=== PATIENT | female | born 1995 | race Caucasian/White ===

== ENCOUNTER 2018-03-03 10:28 | Day surgery (SDC) | payer OTHER ==
[2018-03-03] MEDS ORDERED: Ringers Lactate 1,000 ML IV ONE (10:58)
[2018-03-03 11:05] VITALS: TEMP 98; O2SAT 100
[2018-03-03] MEDS ORDERED: PROPOFOL 200 MG/20 ML VIAL IV ONE (13:00)
[2018-03-03] MEDS ORDERED: LIDOCAINE 1% MPF 5 ML VIAL ONE (13:00)
--- NOTE | 2018-03-03 13:28 | ENDO RPT ---
[address], [address] COLONOSCOPY PROCEDURE REPORT EXAM DATE: 03/03/2018 PATIENT NAME: Gini Santos MR #: [id number] BIRTHDATE: 1995 ATTENDING: Jerald Riggins Dr STATUS: outpatient STUDENT SPECIALIST: Nickie Yan RN, Anaid Birmingham RN, and Margot Arthur INDICATIONS: The patient is a 23 yr old Female here for a colonoscopy due to abdominal pain, hematochezia, and follow-up of Crohn's disease PROCEDURE PERFORMED: Colonoscopy with biopsy MEDICATIONS: Per Anesthesia. ESTIMATED BLOOD LOSS: None CONSENT: The patient understands the risks and benefits of the procedure and understands that these risks include, but are not limited to: sedation, allergic reaction, infection, perforation and/or bleeding. Alternative means of evaluation and treatment include, among others: physical exam, x-rays, and/or surgical intervention. The patient elects to proceed with this endoscopic procedure. DESCRIPTION OF PROCEDURE: During intra-op preparation period all mechanical medical equipment was checked for proper function. Hand hygiene and appropriate measures for infection prevention was taken. Procedure, possible complications, alternatives including, but not limited to possibility of bleeding, perforation, tear, infection, sepsis, need for surgery, need for blood transfusion, were explained to the patient. After the risks, benefits and alternatives of the procedure were thoroughly explained, Informed consent was verified, confirmed and timeout was successfully executed by the treatment team. The patient was placed in the left lateral position. A digital rectal exam was performed and revealed hemorrhoids. After appropriate level of anesthesia, the scope was passed. The EC-[id number] ([id number]) endoscope was introduced through the anus and advanced to the terminal ileum which was intubated for a short distance. The quality of the prep was good. The instrument was then slowly withdrawn as the colon was fully examined. Scope withdrawal time was 7 minutes. COLON FINDINGS: Random biopsies of the terminal ileum / right colon / left colon / rectum obtained. Small internal hemorrhoids were found. Retroflexed views revealed no abnormalities. The scope was then completely withdrawn from the patient and the procedure terminated. ADVERSE EVENTS: There were no complications. IMPRESSIONS: 1. Random biopsies of the terminal ileum / right colon / left colon / rectum obtained 2. Small internal hemorrhoids 2. Intubation to terminal ileum RECOMMENDATIONS: 1. await biopsy results 2. avoid NSAIDS 3. CT abdomen/pelvis 4. pillcam / capsule endoscopy RECALL: Return in 2 year(s) for Colonoscopy. Jerald Riggins Dr eSigned: Jerald Riggins Dr 03/03/2018 1:28 PM cc: CPT CODES: ICD9 CODES: PATIENT NAME: Gini Santos MR#: [id number]
[2018-03-03] MEDS ORDERED: HYDROCORTISONE ACETATE 25MG SUPP PR ONE (13:45)
[2018-03-03] MEDS ORDERED: PROMETHAZINE 25 MG/ML VIAL ONE (13:53)
[2018-03-03] MEDS ORDERED: MEPERIDINE HCL 25 MG/0.5 ML ONE (13:53)
[2018-03-03 14:45] VITALS: BP 102/64
== END 2018-03-03 14:45 | disposition home or self-care (01) ==
LOC: OR 10:28
PROVIDERS: ATTEND Internal Medicine Gastroenterology
PROC: 0DBP8ZX Excision of Rectum, Via Natural or Artificial Opening Endoscopic, Diagnostic (ICD-10-PCS; 2018-03-03)
PROC: 0DBF8ZX Excision of Right Large Intestine, Via Natural or Artificial Opening Endoscopic, Diagnostic (ICD-10-PCS; 2018-03-03)
PROC: 0DBG8ZX Excision of Left Large Intestine, Via Natural or Artificial Opening Endoscopic, Diagnostic (ICD-10-PCS; 2018-03-03)
PROC: 0DBB8ZX Excision of Ileum, Via Natural or Artificial Opening Endoscopic, Diagnostic (ICD-10-PCS; principal; 2018-03-03 10:30)
DX: K92.1 Melena (principal); K64.8 Other hemorrhoids; K50.90 Crohn's disease, unspecified, without complications
CPT/HCPCS: 81025; 88305; J2175; J2550

== ENCOUNTER 2018-08-28 23:22 | Emergency (ER) | payer OTHER ==
[2018-08-29 00:25] LABS: Urine Blood 1+ (NEG); Urine Glucose NEGATIVE (NEG); Urine Protein NEGATIVE (NEG)
[2018-08-29 00:29] LABS: Absolute Lymphocytes (CBC) 4.5 K/uL (0.7-4.9); Absolute Monocytes 0.8 K/uL (0.1-1.3); Absolute Neutrophil 6.5 K/uL (1.8-8.0); Basophils % 0.5 % (0-1.3); Eosinophils % 1.4 % (0-4.4); Hematocrit 39.7 % (36.0-45.0); Lymphocytes % 37.2 % (15.3-44.8); MCH 30.5 pg (27.0-35.0); MCV 89.2 fL (80-100); MPV 9.8 fL (7.6-11.3); Monocytes % 6.7 % (3.3-12.3); RBC Red Blood Cell Count 4.45 M/uL (3.86-4.86)
--- NOTE | 2018-08-29 03:11 | EDPHYS ---
Physician Documentation [facility] Name: Gini Santos Age: 23 yrs Sex: Female : 1995 Arrival Date: 08/28/2018 Time: 23:24 Bed 24 Private MD: ED Physician Yoseph Hirsch HPI: 08/29 00:36 This 23 yrs old Female presents to ER via Ambulatory with complaints of ANAL rn PAIN,CROHNS DISEASE. 00:36 The patient presents to the emergency department with pain in the rectal area. rn 00:36 Onset: The symptoms/episode began/occurred 2 day(s) ago. Modifying factors: The rn symptoms are alleviated by nothing, The symptoms are aggravated by bowel movement. Associate signs and symptoms: Pertinent negatives: abdominal pain, fever, lower GI bleeding. The patient has not experienced similar symptoms in the past. REports anal pain, began 2 days ago, reports pain near anus and hurts with bowel movement, no fever, has crohn's. NO bleeding. . 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 - Social history:: Smoking status: Patient/guardian denies using tobacco. - Ebola Screening: : No symptoms or risks identified at this time. - Family history:: not pertinent. - Hospitalizations: : No recent hospitalization is reported. ROS: 00:36 Constitutional: Negative for fever, chills, and weight loss, Eyes: Negative for injury, rn pain, redness, and discharge, Cardiovascular: Negative for chest pain, palpitations, and edema, Respiratory: Negative for shortness of breath, cough, wheezing, and pleuritic chest pain, Abdomen/GI: Negative for abdominal pain, nausea, vomiting, diarrhea, + perianal pain and tenderness. Back: Negative for injury and pain, MS/Extremity: Negative for injury and deformity, Neuro: Negative for headache, weakness, numbness, tingling, and seizure. Exam: 00:36 Constitutional: This is a well developed, well nourished patient who is awake, alert, rn and in no acute distress. Abdomen/GI: Soft, non-tender, with normal bowel sounds. No distension or tympany. No guarding or rebound. No evidence of tenderness throughout. + small anal swelling at 6 o'clock position, appears 1cm in diameter, no erythema, + tenderness, small microtears overlying swelling. No internal rectal tenderness or masses. Vital Signs: 00:09 BP 154 / 92; Pulse 106; Resp 20; Temp 98; Pulse Ox 100% ; Weight 74.84 kg; Height 5 ft. kr2 4 in. (162.56 cm); Pain 3/10; 00:58 BP 125 / 78; Pulse 91; Pulse Ox 100% on R/A; rv 02:17 BP 123 / 82; Pulse 87; Pulse Ox 100% ; rv 00:09 Body Mass Index 28.32 (74.84 kg, 162.56 cm) kr2 MDM: 08/28 23:43 Patient medically screened. rn 08/29 03:08 Differential diagnosis: hemorrhoids, fissure, abscess. Differential diagnosis: rn proctitis. Data reviewed: vital signs, nurses notes. Counseling: I had a detailed discussion with the patient and/or guardian regarding: the historical points, exam findings, and any diagnostic results supporting the discharge/admit diagnosis, lab results, radiology results, the need for outpatient follow up, to return to the emergency department if symptoms worsen or persist or if there are any questions or concerns that arise at home. Response to treatment: the patient's symptoms have mildly improved after treatment, and as a result, I will discharge patient. Special discussion: I discussed with the patient/guardian in detail that at this point there is no indication for admission to the hospital. It is understood, however, that if the symptoms persist or worsen the patient needs to return immediately for re-evaluation. Based on the history and exam findings, there is no indication for further emergent testing or inpatient evaluation. I discussed with the patient/guardian the need to see the cma for further evaluation of the symptoms. ED course: Pt with normal CT, no evidence of perirectal abscess, small area of swelling in perianal area with micro tears, possible just local inflammation vs phlegmon, vs early perirectal abscess, after discussion with patient, will dc home with steroid cream and abx and pt to make f/u appt with GI. . 08/28 23:59 Order name: CBC with Diff; Complete Time: 00:35 rn 08/29 00:19 Order name: Urine Dipstick--Ancillary (enter results); Complete Time: 00:35 mw2 08/29 00:19 Order name: Urine --Ancillary (enter results); Complete Time: 00:35 mw2 08/29 01:21 Order name: Abdomen EDMS 08/28 23:59 Order name: IV Start; Complete Time: 00:17 rn 08/28 23:59 Order name: Urine Test (obtain specimen); Complete Time: 00:13 rn 08/28 23:59 Order name: Urine Dipstick-Ancillary (obtain specimen); Complete Time: 00:13 rn Administered Medications: 03:15 Drug: Clindamycin 300 mg Route: PO; rv 03:15 Follow up: Response: Medication administered at discharge. rv Disposition: 08/29/18 03:11 Discharged to Home. Impression: Anal pain, Anal fissure, unspecified. - Condition is Stable. - Discharge Instructions: Anal Fissure, Adult, Perirectal Abscess. - Prescriptions for Anusol- HC 2.5 % Rectal Cream - Apply to affected area 1 application by TOPICAL route every 8 hours As needed; 30 gram. Clindamycin HCl 300 mg Oral Capsule - take 1 capsule by ORAL route every 6 hours for 10 days; 40 capsule. Diflucan 150 mg Oral Tablet - take 1 tablet by ORAL route one time for 1 day; 1 tablet. - Medication Reconciliation Form, Thank You Letter, Antibiotic Education, Prescription Opioid Use form. - Follow up: Jerald Riggins MD; When: 1 - 2 days; Reason: Recheck today's complaints, Re-evaluation by your physician. - Problem is new. - Symptoms have improved. Signatures: Dispatcher [employer] EDMS Yoseph Hirsch MD MD rn Reaves, Karey, RN RN kr2 Reese Mulligan RN RN rv Corrections: (The following items were deleted from the chart) 00:01 Pelvis W/Cont+CT.RAD.BRZ ordered. EDMS EDMS 03:19 03:11 08/29/2018 03:11 Discharged to Home. Impression: Anal pain; Anal fissure, rv unspecified. Condition is Stable. Forms are Medication Reconciliation Form, Thank You Letter, Antibiotic Education, Prescription Opioid Use. Follow up: Jerald Riggins; When: 1 - 2 days; Reason: Recheck today's complaints, Re-evaluation by your physician. Problem is new. Symptoms have improved. rn
--- NOTE | 2018-08-29 03:11 | ER ---
Nurse's Notes [facility] Name: Gini Santos Age: 23 yrs Sex: Female : 1995 Arrival Date: 08/28/2018 Time: 23:24 Bed 24 Private MD: Diagnosis: Anal pain;Anal fissure, unspecified Presentation: 08/29 00:00 Presenting complaint: Patient states: "I have Crohn's and on Wednesday I started having kr2 pain near my anus. It is about a 3/10 when I am just doing normal daily activities but gets worse with bowel movements". Transition of care: patient was not received from another setting of care. Onset of symptoms was August 26, 2018. Risk Assessment: Do you want to hurt yourself or someone else? Patient reports no desire to harm self or others. Initial Sepsis Screen: Does the patient meet any 2 criteria? No. Patient's initial sepsis screen is negative. Does the patient have a suspected source of infection? No. Patient's initial sepsis screen is negative. Care prior to arrival: None. 00:00 Method Of Arrival: Ambulatory kr2 00:00 Acuity: JARED 3 kr2 Triage Assessment: 00:06 General: Appears in no apparent distress. uncomfortable, well groomed, well developed, kr2 well nourished, Behavior is calm, cooperative, appropriate for age. Pain: Complains of pain in anus Pain currently is 3 out of 10 on a pain scale. Quality of pain is described as sharp, shooting, Pain began 2-3 days ago. Is continuous, Alleviated by rest, Aggravated by bowel movement. EENT: Oral mucosa is moist. Neuro: Level of Consciousness is awake, alert, obeys commands, Oriented to person, place, time, situation. Cardiovascular: Capillary refill < 3 seconds in bilateral fingers Patient's skin is warm and dry. Respiratory: Airway is patent Respiratory effort is even, unlabored, Respiratory pattern is regular, symmetrical. GI: Abdomen is flat, non-distended, Rectal exam: Deferred to physician Bowel sounds present X 4 quads. Abd is soft and non tender X 4 quads. : Urine is clear. Derm: Skin is intact, is healthy with good turgor, Skin is pink, warm \\T\\ dry. Musculoskeletal: Circulation, motion, and sensation intact. 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 - Social history:: Smoking status: Patient/guardian denies using tobacco. - Ebola Screening: : No symptoms or risks identified at this time. - Family history:: not pertinent. - Hospitalizations: : No recent hospitalization is reported. Screenin:10 Abuse screen: Denies threats or abuse. Denies injuries from another. Nutritional kr2 screening: No deficits noted. Tuberculosis screening: No symptoms or risk factors identified. Fall Risk None identified. Assessment: 00:18 Reassessment: See triage assessment. kr2 00:58 Reassessment: Patient appears in no apparent distress at this time. Patient and/or rv family updated on plan of care and expected duration. Pain level reassessed. Patient is alert, oriented x 3, equal unlabored respirations, skin warm/dry/pink. 02:17 Reassessment: Patient appears in no apparent distress at this time. Patient and/or rv family updated on plan of care and expected duration. Pain level reassessed. Patient is alert, oriented x 3, equal unlabored respirations, skin warm/dry/pink. awaiting CT scan result. Vital Signs: 00:09 BP 154 / 92; Pulse 106; Resp 20; Temp 98; Pulse Ox 100% ; Weight 74.84 kg; Height 5 ft. kr2 4 in. (162.56 cm); Pain 3/10; 00:58 BP 125 / 78; Pulse 91; Pulse Ox 100% on R/A; rv 02:17 BP 123 / 82; Pulse 87; Pulse Ox 100% ; rv 00:09 Body Mass Index 28.32 (74.84 kg, 162.56 cm) kr2 ED Course: 08/28 23:24 Patient arrived in ED. al2 23:43 Hirsch, Yoseph, MD is Attending Physician. rn 08/29 00:00 Heather Cano, HOMER is Primary Nurse. kr2 00:00 Arm band placed on. kr2 00:00 Served as a therapist rrt during rectal exam. kr2 00:02 Triage completed. kr2 00:10 Patient has correct armband on for positive identification. Bed in low position. Call kr2 light in reach. Side rails up X 1. Pulse ox on. NIBP on. Door closed. Warm blanket given. Head of bed elevated. 00:15 Inserted saline lock: 20 gauge in right antecubital area, using aseptic technique. rv Blood collected. 00:15 Initial lab(s) drawn, by me, sent to lab. rv 00:17 Urine collected: clean catch specimen, clear. kr2 01:[address] via wheelchair. kw1 01:45 Abdomen In Process Unspecified. EDMS 01:47 CT completed. Patient tolerated procedure well. Patient moved back from CT. kw1 03:10 Jerald Riggins MD is Referral Physician. rn 03:19 IV discontinued, bleeding controlled, No redness/swelling at site. Pressure dressing rv applied. Administered Medications: 03:15 Drug: Clindamycin 300 mg Route: PO; rv 03:15 Follow up: Response: Medication administered at discharge. rv Outcome: 03:11 Discharge ordered by . rn 03:19 Discharged to home ambulatory. rv 03:19 Condition: good 03:19 Discharge instructions given to patient, Instructed on discharge instructions, follow up and referral plans. medication usage, Demonstrated understanding of instructions, follow-up care, medications, Prescriptions given X 3. 03:19 Patient left the ED. rv Signatures: Dispatcher [employer] EDWY Yoseph Hirsch MD MD rn Reaves, Karey, RN RN kr2 Gina Salgado kw1 Madonna Frazier al2 Reese Mulligan RN RN rv Corrections: (The following items were deleted from the chart) 00:18 00:00 Served as a therapist rrt during rectal exam. kr2 kr2
[2018-08-29] MEDS ORDERED: CLINDAMYCIN HCL 150 MG CAP ONE (03:16)
[2018-08-29 03:32] VITALS: TEMP 98; O2SAT 100
[2018-08-29 03:34] VITALS: BP 123/82
--- NOTE | 2018-08-29 08:30 | RAD REPORT ---
EXAM DESCRIPTION: CT - Abdomen Pelvis W Contrast - 08/29/2018 7:20 am CLINICAL HISTORY: Abdominal pain, perianal pain, history of Crohn's disease A preliminary report was provided at the time of the study and reviewed prior to final report. COMPARISON: July 2017 TECHNIQUE: Biphasic, helical CT imaging of the abdomen and pelvis was performed following 100 ml non -ionic IV contrast. Oral contrast was given. All CT scans are performed using dose optimization technique as appropriate and may include automated exposure control or mA/KV adjustment according to patient size. FINDINGS: No suspicious findings in the lung bases. The liver, spleen, and pancreas show no suspicious findings. Gallbladder and biliary tree are also wi thout suspicious finding. Symmetric renal function is seen with no hydronephrosis or suspicious renal mass. No pyelonephritis o r acute renal parenchymal process. No urinary bladder abnormality. Uterus and ovaries show no suspici ous findings. IUD is properly positioned within a normal sized uterus. No dilated bowel loops or bowel wall thickening. Appendix is normal. No specific abnormality of the t erminal ileum or small bowel. No free air, free fluid or inflammatory stranding. No hernia, mass or bulky lymphadenopathy. No adrenal abnormality. No suspicious bony findings. IMPRESSION: Contrast enhanced CT abdomen and pelvis showing no significant or suspicious finding. No suspicious change from comparison.
== END 2018-08-29 03:19 | disposition home or self-care (01) ==
LOC: ER 23:22
DX: K60.2 Anal fissure, unspecified (principal); K50.90 Crohn's disease, unspecified, without complications; Z88.6 Allergy status to analgesic agent
CPT/HCPCS: 36415; 74177; 81003; 81025; 85025; 99285; Q9967

== ENCOUNTER 2019-02-08 16:22 | Emergency (ER) | payer OTHER ==
--- NOTE | 2019-02-08 18:11 | RAD REPORT ---
EXAM DESCRIPTION: Shaheen Moya (2 Views)02/08/2019 5:36 pm CLINICAL HISTORY: Cough COMPARISON: January 2018 FINDINGS: The lungs appear clear of acute infiltrate. The heart is normal size IMPRESSION: No acute abnormalities displayed
[2019-02-08 20:59] LABS: Urine Blood TRACE (NEG); Urine Glucose NEGATIVE (NEG); Urine Protein NEGATIVE (NEG)
[2019-02-08] MEDS ORDERED: LIDOCAINE 1% MPF 5 ML VIAL ONE (21:02)
[2019-02-08] MEDS ORDERED: ONDANSETRON 4 MG/2 ML VIAL ONE ×2 (21:03→22:11)
[2019-02-08] MEDS ORDERED: NA CHLORIDE 0.9% 1,000 ML ONE ×2 (21:03→22:15)
[2019-02-08] MEDS ORDERED: BENZONATATE 100 MG CAP PO ONE ×3 (21:03→22:15)
[2019-02-08 22:00] LABS: Absolute Lymphocytes (CBC) 5.5 K/uL (0.7-4.9); Absolute Monocytes 1.2 K/uL (0.1-1.3); Absolute Neutrophil 13.2 K/uL (1.8-8.0); Basophils % 0.3 % (0-1.3); Eosinophils % 0.3 % (0-4.4); Hematocrit 39.8 % (36.0-45.0); Lymphocytes % 27.4 % (15.3-44.8); MPV 9.7 fL (7.6-11.3); Monocytes % 6.1 % (3.3-12.3)
[2019-02-08 22:17] LABS: BUN Blood Urea Nitrogen 8 mg/dL (7-18); Bicarbonate 25 mmol/L (21-32); Creatine Phosphokinase 218 U/L (26-192); Glucose Level 84 mg/dL (74-106); Potassium 3.6 mmol/L (3.5-5.1); Sodium Level 143 mmol/L (136-145); Troponin (Emerg Dept Use Only) < 0.02 ng/mL (0.0-0.045)
[2019-02-08 22:22] LABS: Protime INR 1.01
[2019-02-08] MEDS ORDERED: IPRATROPIUM BROM 0.5MG/2.5ML ONE (23:00)
[2019-02-08] MEDS ORDERED: ALBUTEROL 2.5 MG/3 ML NEB SOL ONE (23:00)
[2019-02-09] MEDS ORDERED: HYDROCODONE/CHLORPHEN 5 ML/OSYR ONE (00:26)
[2019-02-09] MEDS ORDERED: METHYLPREDNISOLONE 125 MG INJ ONE (00:26)
[2019-02-09 00:35] LABS: Blood Morphology Comment NOT SEEN (NOT SEEN); Platelet Estimate ADEQ; Urine White Blood Cell Casts OK
--- NOTE | 2019-02-09 02:05 | EDPHYS ---
Physician Documentation [facility] Name: Gini Santso Age: 23 yrs Sex: Female : 1995 Arrival Date: 02/08/2019 Time: 16:27 Bed 14 Private MD: ED Physician Jerald Matthews HPI: 02/08 20:51 This 23 yrs old Female presents to ER via Ambulatory with complaints of cp Cough, Chest Pain, Shortness Of Breath. 20:55 The patient or guardian reports cough, with no sputum. cp 20:55 Onset: The symptoms/episode began/occurred 3 week(s) ago. Severity of symptoms: in the cp emergency department the symptoms are unchanged. Associated signs and symptoms: Pertinent positives: chest pain, with cough, shortness of breath, Pertinent negatives: fever. Patient reports she was diagnosed with influenza B 3 weeks ago and since has had cough. 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 - Social history:: Smoking status: Patient/guardian denies using tobacco. - Ebola Screening: : No symptoms or risks identified at this time. ROS: 21:00 Constitutional: Negative for body aches, chills, fever, poor PO intake. cp 21:00 Eyes: Negative for injury, pain, redness, and discharge. cp 21:00 ENT: Negative for drainage from ear(s), ear pain, difficulty swallowing, difficulty handling secretions. 21:00 Cardiovascular: Positive for chest pain, with cough, Negative for edema. 21:00 Respiratory: Positive for cough, with no reported sputum, shortness of breath, Negative for hemoptysis. 21:00 Abdomen/GI: Positive for nausea, vomiting, Negative for abdominal pain, diarrhea, constipation, black/tarry stool, rectal bleeding. 21:00 Back: Negative for pain at rest, pain with movement. 21:00 Skin: Negative for cellulitis, rash. 21:00 Neuro: Negative for altered mental status, headache, syncope, weakness. 21:00 All other systems are negative. Exam: 21:05 Constitutional: The patient appears in no acute distress, alert, awake, cp non-diaphoretic, non-toxic, well developed, well nourished. 21:05 Head/Face: Normocephalic, atraumatic. Eyes: Pupils equal round and reactive to light, cp extra-ocular motions intact. Lids and lashes normal. Conjunctiva and sclera are non-icteric and not injected. Cornea within normal limits. Periorbital areas with no swelling, redness, or edema. ENT: Nares patent. No nasal discharge, no septal abnormalities noted. Tympanic membranes are normal and external auditory canals are clear. Oropharynx with no redness, swelling, or masses, exudates, or evidence of obstruction, uvula midline. Mucous membranes moist. Chest/axilla: Normal chest wall appearance and motion. Nontender with no deformity. No lesions are appreciated. 21:05 Cardiovascular: Rate: tachycardic, Rhythm: regular, Edema: is not appreciated, JVD: is not appreciated. 21:05 Respiratory: the patient does not display signs of respiratory distress, Respirations: normal, no use of accessory muscles, no retractions, no splinting, no tachypnea, labored breathing, is not present, Breath sounds: bronchial sounds, that are mild, are heard diffusely, decreased breath sounds, are not appreciated, stridor, is not appreciated, + upper airway congestion. wheezing: that is mild, is heard diffusely. 21:05 Abdomen/GI: Inspection: abdomen appears normal, Palpation: abdomen is soft and non-tender, in all quadrants. 21:05 Skin: cellulitis, is not appreciated, no rash present. 21:05 Neuro: Orientation: to person, place \\T\\ time. Mentation: is normal, Cerebellar function: is grossly normal, Motor: moves all fours, strength is normal, Sensation: is normal. Vital Signs: 16:40 BP 134 / 84; Pulse 126; Resp 20 S; Temp 98.6(O); Pulse Ox 98% on R/A; Weight 78.02 kg aa5 (R); Height 5 ft. 5 in. (165.10 cm) (R); Pain 5/10; 21:30 BP 133 / 80; Pulse 110; Resp 22; Pulse Ox 99% ; rr5 22:30 BP 130 / 85; Pulse 74; Resp 20; Pulse Ox 100% ; rr5 02/09 00:00 BP 121 / 72; Pulse 86; Resp 19; Pulse Ox 100% ; rr5 01:00 BP 111 / 70; Pulse 89; Resp 22; Pulse Ox 99% ; rr5 02:15 BP 115 / 76; Pulse 80; Resp 18; Pulse Ox 99% ; rr5 02/08 16:40 Body Mass Index 28.62 (78.02 kg, 165.10 cm) aa5 MDM: 02/08 20:43 Patient medically screened. cp 22:00 Differential Diagnosis: Bronchitis Influenza Asthma Exacerbation Viral Syndrome cp Pneumonia. 02/09 02:05 Data reviewed: vital signs, nurses notes, lab test result(s), EKG, radiologic studies, cp CT scan, plain films, and as a result, I will discharge patient. 02:05 Test interpretation: by ED physician or midlevel provider: ECG, plain radiologic cp studies. Counseling: I had a detailed discussion with the patient and/or guardian regarding: the historical points, exam findings, and any diagnostic results supporting the discharge/admit diagnosis, lab results, radiology results, the need for outpatient follow up, a family practitioner, to return to the emergency department if symptoms worsen or persist or if there are any questions or concerns that arise at home. Response to treatment: the patient's symptoms have markedly improved after treatment, VSS. Cough markedly improved with meds and breathing treatments. Will discharge to home for continued monitoring. 02/08 20:43 Order name: CBC with Diff; Complete Time: 02:03 w 02/08 22:10 Interpretation: Normal except: WBC 20.0; NEUT A 13.2; LYMA 5.5. cp 02/08 20:43 Order name: Chem 7; Complete Time: 22:26 snw 02/08 22:26 Interpretation: Normal except: CL 109; GFR 89. cp 02/08 20:43 Order name: Blood Culture Adult (2) [facility] 02/08 20:43 Order name: Troponin (emerg Dept Use Only); Complete Time: 22:26 sn 02/08 16:42 Order name: Chest Pa And Lat (2 Views) XRAY; Complete Time: 20:40 aa 02/08 20:50 Interpretation: Report reviewed. cp 02/08 20:43 Order name: CPK; Complete Time: 22:26 snw 02/08 22:26 Interpretation: Abnormal: CPK 218. cp 02/08 20:48 Order name: Urine Dipstick--Ancillary (enter results); Complete Time: 21:11 ar5 02/08 22:48 Interpretation: Normal except: UBLD TRACE. cp 02/08 20:50 Order name: D-Dimer; Complete Time: 22:47 cp 02/08 21:14 Order name: Urine --Ancillary (enter results); Complete Time: 22:09 ar5 02/08 22:08 Order name: Protime (+INR); Complete Time: 22:47 EDMS 02/08 22:08 Order name: PTT, Activated Partial Thromb; Complete Time: 22:47 EDMS 02/09 00:35 Order name: CBC Smear Scan; Complete Time: 02:03 EDMS 02/08 20:42 Order name: Misc. Order: lidocaine neb tx; Complete Time: 22:09 snw 02/08 22:50 Order name: CT Chest For PE Angio cp Administered Medications: 02/08 21:00 Drug: Lidocaine (1 %) 5 mg Route: Infiltration; rr5 21:15 Drug: Tessalon Perle 200 mg Route: PO; rr5 21:30 Drug: NS 0.9% 1000 ml Route: IV; Rate: 1 bolus; Site: right hand; rr5 22:50 Follow up: Response: No adverse reaction; IV Status: Completed infusion; IV Intake: rr5 1000ml 21:31 Drug: Zofran 4 mg Route: IVP; Site: right hand; rr5 22:50 Drug: AtroVENT Aerosol 0.5 mg Route: Inhalation; rr5 22:50 Drug: Albuterol 2.5 mg Route: Inhalation; rr5 22:52 Drug: NS 0.9% 1000 ml Route: IV; Rate: 1 bolus; Site: right hand; rr5 02/09 00:30 Drug: SOLU-Medrol 125 mg Route: IVP; Site: right antecubital; rr5 00:33 Drug: Tussionex Pennkinetic ER 5 ml Route: PO; rr5 Disposition: 02/09/19 02:05 Discharged to Home. Impression: Cough. - Condition is Stable. - Discharge Instructions: Cool Mist Vaporizer, Cough, Adult. - Prescriptions for Tessalon Perles 100 mg Oral Capsule - take 2 capsule by ORAL route every 8 hours As needed; 20 capsule. Albuterol Sulfate 2.5 mg /3 mL (0.083 %) Inhalation Solution for Nebulization - inhale 1 unit by NEBULIZATION route every 8 hours As needed; 1 box. Albuterol Sulfate 90 mcg/actuation - inhale 1-2 puff by INHALATION route every 4-6 hours; 1 Inhaler. Medrol (Rodrick) 4 mg Oral Tablets, Dose Pack - take 1 tablet by ORAL route as directed - follow package instructions; 1 packet. - Medication Reconciliation Form, Thank You Letter, Antibiotic Education, Prescription Opioid Use, Work release form form. - Follow up: Private Physician; When: 1 week; Reason: symptoms continue. - Problem is new. - Symptoms have improved. Addendum: 02/10/2019 11:42 Co-signature as Attending Physician, Jerald Matthews MD I agree with the assessment and w a plan of care. Signatures: Dispatcher [employer] [facility] Vikki Gan, CHAIN PERSON-C CHAIN PERSON-Csnw Dona Triana, RN RN aa5 Tanya Woodard RN RN ed1 Johnathan Ponce PA PA cp Jerald Matthews MD MD wa Roque, Raymond, RN RN rr5 Corrections: (The following items were deleted from the chart) 02/08 20:52 20:42 Chest For PE Angio+CT.RAD.BRZ ordered. ED[facility] EDMS 22:08 20:43 PROTIME (+INR)+COAG.LAB.BRZ ordered. ED[facility] EDMS 22:08 20:43 PTT, ACTIVATED+COAG.LAB.BRZ ordered. ED[facility] EDMS 22:10 22:10 Normal except: WBC 20.0; NEUT A 13.2. cp cp 02/09 02:43 02:05 02/09/2019 02:05 Discharged to Home. Impression: Cough. Condition is Stable. ed1 Forms are Medication Reconciliation Form, Thank You Letter, Antibiotic Education, Prescription Opioid Use. Follow up: Private Physician; When: 1 week; Reason: symptoms continue. Problem is new. Symptoms have improved. cp
--- NOTE | 2019-02-09 02:05 | ER ---
Nurse's Notes [facility] Name: Gini Santos Age: 23 yrs Sex: Female : 1995 Arrival Date: 02/08/2019 Time: 16:27 Bed 14 Private MD: Diagnosis: Cough Presentation: 02/08 16:38 Presenting complaint: Patient states: "I had flu B about 3 week ago". Pt c/o cough and aa5 SOB. Pt states "I am taking the neb treatments at home, I've been through a Z-Pack, and yesterday I got a shot of solu-medrol". Pt reports cough is dry. Breath sounds diminished bilaterally. Transition of care: patient was not received from another setting of care. Onset of symptoms was 2018. Risk Assessment: Do you want to hurt yourself or someone else? Patient reports no desire to harm self or others. Initial Sepsis Screen: Does the patient meet any 2 criteria? No. Patient's initial sepsis screen is negative. Does the patient have a suspected source of infection? No. Patient's initial sepsis screen is negative. Care prior to arrival: None. 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 - Social history:: Smoking status: Patient/guardian denies using tobacco. - Ebola Screening: : No symptoms or risks identified at this time. Screenin:30 Abuse screen: Denies threats or abuse. Denies injuries from another. Nutritional rr5 screening: No deficits noted. Tuberculosis screening: No symptoms or risk factors identified. Fall Risk Total Schneider Fall Scale indicates No Risk (0-24 pts). Assessment: 21:00 General: Appears in no apparent distress. uncomfortable, Behavior is calm, cooperative, rr5 appropriate for age. 21:00 Reassessment: patient came coughing continuously. D provider aware and see the patient rr5 with order made and carried out. Pain: Complains of pain in chest Pain does not radiate. Pain currently is 5 out of 10 on a pain scale. Quality of pain is described as aching, Pain began gradually, Is intermittent. Neuro: Level of Consciousness is awake, alert, obeys commands, Oriented to person, place, time, situation, Appropriate for age. Cardiovascular: Capillary refill < 3 seconds Patient's skin is warm and dry. Chest pain. Respiratory: Reports shortness of breath cough that is pain with cough Airway is patent Respiratory effort is even, unlabored, Respiratory pattern is regular, symmetrical. GI: No signs and/or symptoms were reported involving the gastrointestinal system. : No signs and/or symptoms were reported regarding the genitourinary system. EENT: No signs and/or symptoms were reported regarding the EENT system. Derm: Skin is intact, Skin temperature is warm. Musculoskeletal: Capillary refill < 3 seconds, Range of motion: intact in all extremities. 22:00 Reassessment: Patient appears in no apparent distress at this time. Patient is alert, rr5 oriented x 3, equal unlabored respirations, skin warm/dry/pink. Patient states symptoms have improved. 22:50 Reassessment: Patient appears in no apparent distress at this time. complaining of rr5 cough came back. ED provider aware with order made and carried out. 02/09 00:00 Reassessment: Patient appears in no apparent distress at this time. No changes from rr5 previously documented assessment. no complaints made. continuous coughing noted. ED provider aware with order made and carried out. 01:00 Reassessment: Patient appears in no apparent distress at this time. Patient is alert, rr5 oriented x 3, equal unlabored respirations, skin warm/dry/pink. awaiting for CTscan result. Patient states symptoms have improved. 02:30 Reassessment: Patient appears in no apparent distress at this time. Patient is alert, rr5 oriented x 3, equal unlabored respirations, skin warm/dry/pink. discharge instruction given and explained without complaints made. alliance consultant came for her ride home. Vital Signs: 02/08 16:40 BP 134 / 84; Pulse 126; Resp 20 S; Temp 98.6(O); Pulse Ox 98% on R/A; Weight 78.02 kg aa5 (R); Height 5 ft. 5 in. (165.10 cm) (R); Pain 5/10; 21:30 BP 133 / 80; Pulse 110; Resp 22; Pulse Ox 99% ; rr5 22:30 BP 130 / 85; Pulse 74; Resp 20; Pulse Ox 100% ; rr5 0404 00:00 BP 121 / 72; Pulse 86; Resp 19; Pulse Ox 100% ; rr5 01:00 BP 111 / 70; Pulse 89; Resp 22; Pulse Ox 99% ; rr5 02:15 BP 115 / 76; Pulse 80; Resp 18; Pulse Ox 99% ; rr5 02/08 16:40 Body Mass Index 28.62 (78.02 kg, 165.10 cm) aa5 ED Course: 02/08 16:27 Patient arrived in ED. mr 16:37 Arm band placed on. aa5 16:39 Triage completed. aa5 17:34 Chest Pa And Lat (2 Views) XRAY In Process Unspecified. EDMS 20:40 Frank Yi RN is Primary Nurse. rr5 20:43 Johnathan Ponce PA is PHCP. cp 20:43 Jerald Matthews MD is Attending Physician. cp 20:43 Radiology exam delayed due to lab results not completed at this time. (BUN/Creatinine). nj 21:00 Patient has correct armband on for positive identification. Bed in low position. Call rr5 light in reach. Side rails up X2. Pulse ox on. NIBP on. 21:30 Inserted saline lock: 20 gauge in right hand, using aseptic technique. Blood collected. rr5 21:30 Patient maintains SpO2 saturation greater than 95% on room air. rr5 04 00:15 Inserted saline lock: 22 gauge in right antecubital area, using aseptic technique. rr5 00:24 CT Chest For PE Angio In Process Unspecified. EDMS 01:10 CT completed. Patient tolerated procedure well. Patient moved to CT via wheelchair. Patient moved back from CT. 02:43 No provider procedures requiring assistance completed. IV discontinued, intact, ed1 bleeding controlled, No redness/swelling at site. Pressure dressing applied. Administered Medications: 02/08 21:00 Drug: Lidocaine (1 %) 5 mg Route: Infiltration; rr5 21:15 Drug: Tessalon Perle 200 mg Route: PO; rr5 21:30 Drug: NS 0.9% 1000 ml Route: IV; Rate: 1 bolus; Site: right hand; rr5 22:50 Follow up: Response: No adverse reaction; IV Status: Completed infusion; IV Intake: rr5 1000ml 21:31 Drug: Zofran 4 mg Route: IVP; Site: right hand; rr5 22:50 Drug: AtroVENT Aerosol 0.5 mg Route: Inhalation; rr5 22:50 Drug: Albuterol 2.5 mg Route: Inhalation; rr5 22:52 Drug: NS 0.9% 1000 ml Route: IV; Rate: 1 bolus; Site: right hand; rr5 04 00:30 Drug: SOLU-Medrol 125 mg Route: IVP; Site: right antecubital; rr5 00:33 Drug: Tussionex Pennkinetic ER 5 ml Route: PO; rr5 Intake: 02/08 22:50 IV: 1000ml; Total: 1000ml. rr5 Outcome: 02/09 02:05 Discharge ordered by MD. cp 02:43 Discharged to home ambulatory, with family. ed1 02:43 Condition: good 02:43 Discharge instructions given to patient, Instructed on discharge instructions, follow up and referral plans. medication usage, Demonstrated understanding of instructions, follow-up care, medications, Prescriptions given X 4. 02:43 Patient left the ED. ed1 Signatures: Dispatcher [employer] KATHARINEID DelgadoNancy ivy mr LebronChandler Audri, RN RN aa5 Tanya Woodard RN RN ed1 Johnathan Ponce PA PA cp Jordan, Nathan nj Roque, Raymond, RN RN rr5 Corrections: (The following items were deleted from the chart) 02/08 16:43 16:38 Presenting complaint: Patient states: "I had flu B about 3 week ago". Pt c/o aa5 cough and SOB. Pt states "I am taking the neb treatments at home, I've been through a Z-Pack, and yesterday I got a shot of solu-medrol". Pt reports cough is dry. aa5
[2019-02-09 02:58] VITALS: TEMP 98.6
[2019-02-09 03:04] VITALS: BP 111/70; O2SAT 99
--- NOTE | 2019-02-09 10:57 | RAD REPORT ---
EXAM DESCRIPTION: CT - Chest For Pe Angio - 02/09/2019 5:33 am CLINICAL HISTORY: 23-year-old female with cough, shortness of breath. TECHNIQUE: Following the administration of intravenous contrast, multiple high-resolution axial imag es of the chest were performed followed by sagittal and coronal reconstructed images. The CT study is performed according to ALARA (as low as reasonably achievable) or ALARA/IMAGE GENTLY, with automatic adjustment of mA and/or kV according to patient size. Performed on: 02/08/2019 at 11:58 PM COMPARISON: None FINDINGS: There is satisfactory visualization and contrast opacification of pulmonary arteries. No definite intra-arterial filling defects are identified to suggest acute or chronic pulmonary embolis m. The thoracic aorta is normal in caliber and contour without evidence of aneurysm or dissection. The lungs are well expanded and are clear. There is no evidence of a pneumothorax. There are no pleur al effusions. The heart is normal in size. There is no pericardial effusion. There is no evidence of hilar, mediastinal or axillary lymphadenopathy. No acute osseous abnormality is identified. The visualized upper abdominal structures are unremarkable. IMPRESSION: 1. No CT evidence to suggest acute or chronic pulmonary embolism, aortic aneurysm or aor tic dissection. 2. No evidence of acute intrathoracic disease. Electronically signed by: Jessica Boston DO 02/09/2019 12:32 AM CDT Due to temporary technical issues with the PACS/Fluency reporting system, reports are being signed by the in house radiologist as a courtesy to ensure prompt reporting. The interpreting radiologist is f ully responsible for the content of the report.
== END 2019-02-09 02:43 | disposition home or self-care (01) ==
LOC: ER 16:22
DX: R05 Cough (principal); Z88.6 Allergy status to analgesic agent
CPT/HCPCS: 36415; 71046; 71275; 80048; 81003; 81025; 82550; 84484; 85025; 85379; 85610; 85730; 87040; 96361; 96374; 96375; 99285; J2405; J2930; J7030; Q9967

== ENCOUNTER 2019-05-25 17:49 | Observation (INO) | payer OTHER, SELFPAY ==
[2019-05-25] MEDS ORDERED: NA CHLORIDE 0.9% 2,000 ML ONE (18:19)
[2019-05-25] MEDS ORDERED: ACETAMINOPHEN 500 MG TAB ONE (18:43)
[2019-05-25] MEDS ORDERED: ONDANSETRON 4 MG/2 ML VIAL ONE ×2 (18:43→20:10)
[2019-05-25] MEDS ORDERED: MORPHINE 4 MG/ML SYR ONE ×2 (18:43→20:10)
[2019-05-25 18:48] LABS: Absolute Lymphocytes (CBC) 0.9 K/uL (0.7-4.9); Basophils % 0.3 % (0-1.3); Eosinophils % 0.5 % (0-4.4); Hematocrit 41.8 % (36.0-45.0); Lymphocytes % 7.2 % (15.3-44.8); MPV 10.2 fL (7.6-11.3); Monocytes % 9.6 % (3.3-12.3); RBC Red Blood Cell Count 4.66 M/uL (3.86-4.86)
[2019-05-25 18:56] LABS: Protime INR 1.14
[2019-05-25 19:04] LABS: ALT/SGPT 19 U/L (12-78); AST/SGOT 15 U/L (15-37); Alkaline Phosphatase 78 U/L (45-117); BUN Blood Urea Nitrogen 9 mg/dL (7-18); Bicarbonate 19 mmol/L (21-32); Bilirubin Direct < 0.1 mg/dL (0-0.2); Bilirubin Total 0.2 mg/dL (0.2-1.0); CKMB Creatine Kinase MB < 1.0 ng/mL (0.3-3.6); Creatine Phosphokinase 88 U/L (26-192); Glucose Level 92 mg/dL (74-106); Lipase 106 U/L (73-393); Potassium 3.6 mmol/L (3.5-5.1); Protein, Total 8.4 g/dL (6.4-8.2); Sodium Level 140 mmol/L (136-145); Troponin (Emerg Dept Use Only) < 0.02 ng/mL (0.0-0.045)
--- NOTE | 2019-05-25 19:08 | RAD REPORT ---
EXAM DESCRIPTION: Shaheen Single View05/25/2019 6:50 pm CLINICAL HISTORY: Chest pain COMPARISON: February 2019 FINDINGS: The lungs appear clear of acute infiltrate. The heart is normal size IMPRESSION: No acute abnormalities displayed
[2019-05-25 19:26] LABS: Urine Blood 2+ (NEG); Urine Glucose NEGATIVE (NEG); Urine Protein NEGATIVE (NEG); Urine pH 8.5 (5.0-7.0)
[2019-05-25] MEDS ORDERED: LIDOCAINE 1% 20 ML MDV ONE (21:23)
--- NOTE | 2019-05-25 21:46 | ER ---
Nurse's Notes [facility] Name: Gini Santos Age: 24 yrs Sex: Female : 1995 Arrival Date: 05/25/2019 Time: 17:50 Bed 4 Private MD: Diagnosis: Fever, unspecified;Headache;Malaise and fatigue Presentation: 05/25 17:53 Presenting complaint: Pain all over, worse in neck and low back and fever since this hb morning, sent from urgent care for HR 170s. TMAX 101. Transition of care: patient was not received from another setting of care. Onset of symptoms was May 25, 2019. Risk Assessment: Do you want to hurt yourself or someone else? Patient reports no desire to harm self or others. Care prior to arrival: Motrin at 1645, Tylenol at 1545. 17:53 Method Of Arrival: Ambulatory hb 17:53 Acuity: JARED 2 hb 19:15 Initial Sepsis Screen: Does the patient meet any 2 criteria? HR > 90 bpm. No. Patient's rr5 initial sepsis screen is negative. Does the patient have a suspected source of infection? No. Patient's initial sepsis screen is negative. 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 - Social history:: Smoking status: Patient/guardian denies using tobacco. - Ebola Screening: : No symptoms or risks identified at this time. Screenin:42 Abuse screen: Denies threats or abuse. Denies injuries from another. Nutritional aj screening: No deficits noted. Tuberculosis screening: No symptoms or risk factors identified. Fall Risk None identified. Assessment: 18:42 General: Appears in no apparent distress. uncomfortable, Behavior is anxious. Pain: aj Complains of pain in back of neck and posterior chest. Neuro: Level of Consciousness is awake, alert, obeys commands, Oriented to person, place, time, situation, Appropriate for age Day Care Teacher are equal bilaterally Moves all extremities. Gait is steady, Speech is normal, Facial symmetry appears normal. Respiratory: Airway is patent Respiratory effort is even, unlabored, Respiratory pattern is regular, symmetrical. GI: Reports nausea. Derm: Skin is intact, is healthy with good turgor, Skin is pink, warm \\T\\ dry. normal. 19:00 General: Appears in no apparent distress. uncomfortable, Behavior is calm, cooperative, rr5 appropriate for age. Pain: Complains of pain in head and neck Pain does not radiate. Pain currently is 8 out of 10 on a pain scale. Quality of pain is described as aching, Pain began gradually, Is intermittent. 19:00 Neuro: Level of Consciousness is awake, alert, obeys commands, Oriented to person, rr5 place, time, situation, Appropriate for age Day Care Teacher are equal bilaterally Moves all extremities. Full function Reports headache in entire. Cardiovascular: Capillary refill < 3 seconds Patient's skin is warm and dry. Respiratory: Airway is patent Respiratory effort is even, unlabored, Respiratory pattern is regular, symmetrical. GI: Abdomen is round Reports nausea. : No signs and/or symptoms were reported regarding the genitourinary system. EENT: No signs and/or symptoms were reported regarding the EENT system. Derm: Skin is intact, Skin is pink, warm \\T\\ dry. Musculoskeletal: Circulation, motion, and sensation intact. Capillary refill < 3 seconds, Range of motion: intact in all extremities. 19:15 Reassessment: Hermelinda from laboratory called for lactate 2.6 ed provider aware. rr5 19:50 Reassessment: complaints of headache 8/10 ED provider aware with order made and carried rr5 out. 20:30 Reassessment: Patient appears in no apparent distress at this time. pain score for the rr5 headache 5/10. for lumbar puncture procedure consented Patient states symptoms have improved. 21:35 Reassessment: Patient appears in no apparent distress at this time. Patient is alert, rr5 oriented x 3, equal unlabored respirations, skin warm/dry/pink. patient tolerated well the LP procedure under dr. elias.lay flat on bed. 22:30 Reassessment: Patient appears in no apparent distress at this time. Patient is alert, rr5 oriented x 3, equal unlabored respirations, skin warm/dry/pink. chatting with her past due accounts clerk at bedside. 23:30 Reassessment: Patient appears in no apparent distress at this time. voided freely at rr5 bedpan. bed linen changed. 05/26 00:15 Reassessment: Patient appears in no apparent distress at this time. Patient is alert, rr5 oriented x 3, equal unlabored respirations, skin warm/dry/pink. complaint of headache. Tylenol 500mg tablet given as PRN medication. 00:59 Reassessment: Patient appears in no apparent distress at this time. Patient is alert, rr5 oriented x 3, equal unlabored respirations, skin warm/dry/pink. transfer to medical surgical department. awake conscious and coherent. not in distress breathing spontaneously at room air. Vital Signs: 05/25 17:53 BP 138 / 70; Pulse 164; Resp 20; Temp 99.6; Pulse Ox 99% on R/A; Weight 74.84 kg; hb Height 5 ft. 4 in. (162.56 cm); Pain 9/10; 18:42 BP 139 / 101; Pulse 124; Resp 14; Pulse Ox 98% ; aj 19:50 BP 117 / 64; Pulse 113; Resp 19; Temp 98.5; Pulse Ox 99% ; Pain 8/10; rr5 20:30 BP 115 / 60; Pulse 110; Resp 19; Temp 98.4; Pulse Ox 99% on R/A; rr5 21:30 BP 126 / 70; Pulse 113; Resp 15; Pulse Ox 98% on R/A; rr5 22:00 BP 112 / 68; Pulse 99; Resp 16; Temp 98.4; Pulse Ox 99% on R/A; rr5 23:00 BP 126 / 79; Pulse 104; Resp 18; Pulse Ox 99% ; rr5 05/26 00:00 BP 110 / 63; Pulse 102; Resp 16; Pulse Ox 100% ; Pain 4/10; rr5 00:54 BP 118 / 79; Pulse 95; Resp 18; Temp 98; Pulse Ox 100% on R/A; rr5 05/25 17:53 Body Mass Index 28.32 (74.84 kg, 162.56 cm) ED Course: 05/25 17:50 Patient arrived in ED. as 17:55 Triage completed. hb 17:55 Arm band placed on right wrist. hb 18:10 Inserted saline lock: 20 gauge in right antecubital area, using aseptic technique. aj Blood collected. By Donaldo Estrada. 18:23 Johnathan Elias MD is Attending Physician. mi 18:41 Princess Edwards, RN is Primary Nurse. aj 18:42 Patient has correct armband on for positive identification. Placed in gown. Bed in low aj position. Call light in reach. Side rails up X2. Adult w/ patient. threat monitoring analyst on. Pulse ox on. NIBP on. 18:51 Chest Single View XRAY In Process Unspecified. EDMS 19:04 Frank Yi, RN is Primary Nurse. rr5 21:35 Assist provider with lumbar puncture: Set up LP tray. Performed by Johnathan Elias MD rr5 CSF is clear. Puncture site dressed with band aid, Procedure was successful. Patient tolerated well. 21:44 Jimenez Phillips MD is Hospitalizing Provider. mi 22:15 CT Head C Spine In Process Unspecified. EDMS 05/26 00:55 Patient admitted, IV remains in place. intact, No redness/swelling at site. rr5 Administered Medications: 05/25 18:10 Drug: NS 0.9% 1000 ml Route: IV; Rate: 1 bolus; Site: right antecubital; aj 19:15 Follow up: Response: No adverse reaction; IV Status: Completed infusion; IV Intake: rr5 1000ml 18:37 Drug: Tylenol 1000 mg Route: PO; aj 19:40 Follow up: Response: No adverse reaction rr5 18:37 Drug: Zofran 4 mg Route: IVP; Site: right antecubital; aj 19:40 Follow up: Response: No adverse reaction rr5 18:43 Drug: morphine 4 mg Route: IVP; Site: right antecubital; aj 19:40 Follow up: Response: No adverse reaction rr5 18:44 Drug: NS 0.9% 1000 ml Route: IV; Rate: 1 bolus; Site: right antecubital; aj 20:40 Follow up: Response: No adverse reaction; IV Status: Completed infusion; IV Intake: rr5 1000ml 19:52 Drug: morphine 4 mg Route: IVP; Site: right antecubital; rr5 20:50 Follow up: Response: No adverse reaction rr5 19:55 Drug: Zofran 4 mg Route: IVP; Site: right antecubital; rr5 20:50 Follow up: Response: No adverse reaction rr5 21:50 Drug: NS 0.9% 1000 ml Route: IV; Rate: 1 bolus; Site: right antecubital; rr5 23:00 Follow up: Response: No adverse reaction; IV Status: Completed infusion; IV Intake: rr5 1000ml 21:50 Drug: Rocephin 2 grams Route: IV; Rate: per protocol; Site: right antecubital; rr5 22:20 Follow up: Response: No adverse reaction; IV Status: Completed infusion; IV Intake: [id number] 23:15 Drug: Zithromax 500 mg Route: IVPB; Infused Over: 1 hrs; Site: left antecubital; rr5 05/26 00:15 Follow up: Response: No adverse reaction; IV Status: Completed infusion; IV Intake: rr5 250ml Point of Care Testing: Blood Glucose: 05/25 18:10 Blood Glucose: 98 mg/dL; aj Ranges: Intake: 19:15 IV: 1000ml; Total: 1000ml. rr5 20:40 IV: 1000ml; Total: 2000ml. rr5 22:20 IV: 20ml; Total: 2020ml. rr5 23:00 IV: 1000ml; Total: 3020ml. rr5 05/26 00:15 IV: 250ml; Total: 3270ml. rr5 Outcome: 05/25 21:45 Decision to Hospitalize by Provider. mi 05/26 00:55 Admitted to Med/surg accompanied by tech, room 209, with chart, Report called to rr5 asael Condition: stable Instructed on the need for admit. 01:05 Patient left the ED. rr5 Signatures: Dispatcher [employer] EDMS Princess Edwards RN RN aj Anderson, Corey, MD MD cha Martinez, Amelia as Baxter, Heather, RN RN hb Roque, Raymond, RN RN rr5 Corrections: (The following items were deleted from the chart) 05/25 18:18 17:53 Presenting complaint: Pain all over, worse in neck and low back and fever since hb this morning, sent from urgent care for RH 170s. TMAX 101 hb
--- NOTE | 2019-05-25 21:46 | EDPHYS ---
Physician Documentation [facility] Name: Gini Santos Age: 24 yrs Sex: Female : 1995 Arrival Date: 05/25/2019 Time: 17:50 Bed 4 Private MD: ED Physician Johnathan Elias HPI: 05/25 19:03 This 24 yrs old Female presents to ER via Ambulatory with complaints of mi Fever, Neck and Upper Back Pain. 19:03 The patient reports fever, that was measured at 102 degrees Fahrenheit. Onset: The mi symptoms/episode began/occurred this morning. Modifying factors: there are no obvious modifying factors. Associated signs and symptoms: Pertinent positives: arthralgias, backache. Severity of symptoms: At their worst the symptoms were moderate in the emergency department the symptoms are unchanged. The patient has not experienced similar symptoms in the past. 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 - Social history:: Smoking status: Patient/guardian denies using tobacco. - Ebola Screening: : No symptoms or risks identified at this time. ROS: 19:04 Eyes: Negative for injury, pain, redness, and discharge, ENT: Negative for injury, mi pain, and discharge, Cardiovascular: Negative for chest pain, palpitations, and edema, Respiratory: Negative for shortness of breath, cough, wheezing, and pleuritic chest pain, Abdomen/GI: Negative for abdominal pain, nausea, vomiting, diarrhea, and constipation, : Negative for injury, bleeding, discharge, and swelling, MS/Extremity: Negative for injury and deformity, Skin: Negative for injury, rash, and discoloration, Neuro: Negative for headache, weakness, numbness, tingling, and seizure, Psych: Negative for depression, anxiety, suicide ideation, homicidal ideation, and hallucinations, Allergy/Immunology: Negative for hives, rash, and allergies, Endocrine: Negative for neck swelling, polydipsia, polyuria, polyphagia, and marked weight changes, Hematologic/Lymphatic: Negative for swollen nodes, abnormal bleeding, and unusual bruising. 19:04 Constitutional: Positive for body aches, fever, malaise. 19:04 Neck: Positive for pain with movement, pain at rest. 19:04 Back: Positive for decreased range of motion, pain at rest, pain with movement. Exam: 19:04 Head/Face: Normocephalic, atraumatic. Eyes: Pupils equal round and reactive to light, mi extra-ocular motions intact. Lids and lashes normal. Conjunctiva and sclera are non-icteric and not injected. Cornea within normal limits. Periorbital areas with no swelling, redness, or edema. ENT: Nares patent. No nasal discharge, no septal abnormalities noted. Tympanic membranes are normal and external auditory canals are clear. Oropharynx with no redness, swelling, or masses, exudates, or evidence of obstruction, uvula midline. Mucous membranes moist. Chest/axilla: Normal chest wall appearance and motion. Nontender with no deformity. No lesions are appreciated. Respiratory: Lungs have equal breath sounds bilaterally, clear to auscultation and percussion. No rales, rhonchi or wheezes noted. No increased work of breathing, no retractions or nasal flaring. Abdomen/GI: Soft, non-tender, with normal bowel sounds. No distension or tympany. No guarding or rebound. No evidence of tenderness throughout. Back: No spinal tenderness. No costovertebral tenderness. Full range of motion. Skin: Warm, dry with normal turgor. Normal color with no rashes, no lesions, and no evidence of cellulitis. MS/ Extremity: Pulses equal, no cyanosis. Neurovascular intact. Full, normal range of motion. Neuro: Awake and alert, GCS 15, oriented to person, place, time, and situation. Cranial nerves II-XII grossly intact. Motor strength 5/5 in all extremities. Sensory grossly intact. Cerebellar exam normal. Normal gait. Psych: Awake, alert, with orientation to person, place and time. Behavior, mood, and affect are within normal limits. 19:04 Constitutional: The patient appears febrile. 19:04 Neck: External neck: is normal, no acute changes, C-spine: appears grossly normal, no acute changes, Thyroid: appears normal, Trachea: is midline with no obvious abnormalities, ROM/movement: pain, that is mild, Meningeal signs: are not present, Kernig's sign is negative, Brudzinski's sign is negative, Lymph nodes: no appreciated lymphadenopathy. 19:07 CT study not indicated or reported. Reason for not performing CT: na [facility] Vital Signs: 17:53 BP 138 / 70; Pulse 164; Resp 20; Temp 99.6; Pulse Ox 99% on R/A; Weight 74.84 kg; hb Height 5 ft. 4 in. (162.56 cm); Pain 9/10; 18:42 BP 139 / 101; Pulse 124; Resp 14; Pulse Ox 98% ; aj 19:50 BP 117 / 64; Pulse 113; Resp 19; Temp 98.5; Pulse Ox 99% ; Pain 8/10; rr5 20:30 BP 115 / 60; Pulse 110; Resp 19; Temp 98.4; Pulse Ox 99% on R/A; rr5 21:30 BP 126 / 70; Pulse 113; Resp 15; Pulse Ox 98% on R/A; rr5 22:00 BP 112 / 68; Pulse 99; Resp 16; Temp 98.4; Pulse Ox 99% on R/A; rr5 23:00 BP 126 / 79; Pulse 104; Resp 18; Pulse Ox 99% ; rr5 05/26 00:00 BP 110 / 63; Pulse 102; Resp 16; Pulse Ox 100% ; Pain 4/10; rr5 00:54 BP 118 / 79; Pulse 95; Resp 18; Temp 98; Pulse Ox 100% on R/A; rr5 05/25 17:53 Body Mass Index 28.32 (74.84 kg, 162.56 cm) Procedures: 05/25 21:42 Lumbar Puncture: Patient placed in left lateral decubitus position. Patient placed in [facility] sitting position. Collected 20 ml's of Puncture site dressed with band aid, Patient tolerated well. MDM: 18:23 Patient medically screened. [facility] 19:06 Data reviewed: vital signs, nurses notes, lab test result(s), radiologic studies, plain mi films. 05/25 18:07 Order name: Basic Metabolic Panel 05/25 18:07 Order name: Blood Culture Adult (2) 05/25 18:07 Order name: CBC with Diff; Complete Time: 19:06 05/25 18:07 Order name: Ckmb; Complete Time: 19:06 05/25 18:07 Order name: CPK; Complete Time: 19:06 05/25 18:07 Order name: Lactate; Complete Time: 19:49 05/25 18:07 Order name: LFT's; Complete Time: 19:06 05/25 18:07 Order name: Lipase; Complete Time: 19:06 05/25 18:07 Order name: Procalcitonin; Complete Time: 19:49 05/25 18:07 Order name: Protime (+inr); Complete Time: 19:49 05/25 18:07 Order name: Ptt, Activated; Complete Time: 19:49 05/25 18:07 Order name: Troponin (emerg Dept Use Only); Complete Time: 19:06 05/25 18:09 Order name: Basic Metabolic Panel; Complete Time: 19:06 [facility] 05/25 18:09 Order name: Blood Culture [facility] 05/25 18:07 Order name: Chest Single View XRAY; Complete Time: 19:49 05/25 18:14 Order name: Flu; Complete Time: 19:49 05/25 18:25 Order name: Strep; Complete Time: 19:49 [facility] 05/25 19:15 Order name: Urine Dipstick--Ancillary (enter results); Complete Time: 19:49 [facility] 05/25 19:15 Order name: Urine --Ancillary (enter results); Complete Time: 19:49 [facility] 05/25 19:18 Order name: Throat Culture [facility] 05/25 19:44 Order name: Spinal Fluid Profile; Complete Time: 22:37 [facility] 05/25 21:44 Order name: CT Head C Spine [facility] 05/25 21:47 Order name: Lactate Sepsis 2 HR Follow-up; Complete Time: 22:30 [facility] 05/25 21:48 Order name: Body Fluid Cell Count; Complete Time: 22:54 [facility] 05/25 21:48 Order name: CSF Culture [facility] 05/25 18:07 Order name: Accucheck; Complete Time: 18:10 05/25 18:07 Order name: Cardiac monitoring; Complete Time: 18:10 05/25 18:07 Order name: EKG - Nurse/Tech; Complete Time: 18:10 05/25 18:07 Order name: IV Saline Lock - Large Bore; Complete Time: 18:10 05/25 18:07 Order name: Labs collected and sent; Complete Time: 18:10 05/25 18:07 Order name: O2 Per Protocol; Complete Time: 18:10 05/25 18:07 Order name: O2 Sat Monitoring; Complete Time: 18:44 05/25 18:07 Order name: Urine Test (obtain specimen); Complete Time: 23:56 05/25 19:44 Order name: Lumbar Puncture Setup; Complete Time: 22:02 [facility] 05/25 22:21 Order name: CONS Pharmacy Consult [facility] 05/25 22:21 Order name: CONS Physician Consult [facility] 05/25 22:21 Order name: NPO EDMS Administered Medications: 18:10 Drug: NS 0.9% 1000 ml Route: IV; Rate: 1 bolus; Site: right antecubital; aj 19:15 Follow up: Response: No adverse reaction; IV Status: Completed infusion; IV Intake: rr5 1000ml 18:37 Drug: Tylenol 1000 mg Route: PO; aj 19:40 Follow up: Response: No adverse reaction rr5 18:37 Drug: Zofran 4 mg Route: IVP; Site: right antecubital; aj 19:40 Follow up: Response: No adverse reaction rr5 18:43 Drug: morphine 4 mg Route: IVP; Site: right antecubital; aj 19:40 Follow up: Response: No adverse reaction rr5 18:44 Drug: NS 0.9% 1000 ml Route: IV; Rate: 1 bolus; Site: right antecubital; aj 20:40 Follow up: Response: No adverse reaction; IV Status: Completed infusion; IV Intake: rr5 1000ml 19:52 Drug: morphine 4 mg Route: IVP; Site: right antecubital; rr5 20:50 Follow up: Response: No adverse reaction rr5 19:55 Drug: Zofran 4 mg Route: IVP; Site: right antecubital; rr5 20:50 Follow up: Response: No adverse reaction rr5 21:50 Drug: NS 0.9% 1000 ml Route: IV; Rate: 1 bolus; Site: right antecubital; rr5 23:00 Follow up: Response: No adverse reaction; IV Status: Completed infusion; IV Intake: rr5 1000ml 21:50 Drug: Rocephin 2 grams Route: IV; Rate: per protocol; Site: right antecubital; rr5 22:20 Follow up: Response: No adverse reaction; IV Status: Completed infusion; IV Intake: [id number] 23:15 Drug: Zithromax 500 mg Route: IVPB; Infused Over: 1 hrs; Site: left antecubital; rr5 05/26 00:15 Follow up: Response: No adverse reaction; IV Status: Completed infusion; IV Intake: rr5 250ml Point of Care Testing: Blood Glucose: 05/25 18:10 Blood Glucose: 98 mg/dL; Ranges: Critical Glucose Levels:Adult <50 mg/dl or >400 mg/dl <40 mg/dl or >180 mg/dl Disposition: 05/25/19 21:45 Hospitalization ordered by Jimenez Phillips for Inpatient Admission. Preliminary diagnosis are Fever, unspecified, Headache, Malaise and fatigue. - Bed requested for Telemetry/MedSurg (Inpatient). - Status is Inpatient Admission. rr5 - Condition is Stable. - Problem is new. - Symptoms have improved. UTI on Admission? No Signatures: Dispatcher [employer] [facility] Princess Edwards RN RN aj Anderson, Corey, MD MD cha Ballard, Brenda, RN RN bb Baxter, Heather, RN RN hb Starr, Gregory, MD MD gs Roque, Raymond RN RN rr5 Corrections: (The following items were deleted from the chart) 21:51 21:48 CSF Bacterial Antigens (Tube 1 ordered. [facility] 22:35 21:45 Hospitalization Ordered by Jimenez Phillips MD for Inpatient Admission. Preliminary bb diagnosis is Fever, unspecified; Headache; Malaise and fatigue. Bed requested for Telemetry/MedSurg (Inpatient). Status is Inpatient Admission. Condition is Stable. Problem is new. Symptoms have improved. UTI on Admission? No. mi 05/26 01:05 05/25 22:35 05/25/2019 21:45 Hospitalization Ordered by Jimenez Phillips MD for Inpatient rr5 Admission. Preliminary diagnosis is Fever, unspecified; Headache; Malaise and fatigue. Bed requested for Telemetry/MedSurg (Inpatient). Status is Inpatient Admission. Condition is Stable. Problem is new. Symptoms have improved. UTI on Admission? No. bb
[2019-05-25 21:59] LABS: CSF Glucose 56 mg/dL (40-70)
[2019-05-25] MEDS ORDERED: CEFTRIAXONE/SWI 1gm 2 GM/20 ML SYR ONE (21:59)
[2019-05-25] MEDS ORDERED: NA CHLORIDE 0.9% 1,000 ML ONE (21:59)
[2019-05-25] MEDS ORDERED: ONDANSETRON 4 MG/2 ML VIAL IV PRN (22:16)
[2019-05-25 22:34] LABS: Appearance CLEAR (CLEAR); Body Fluid Source CSF; Color of fluid Colorless (COLORLESS); Fluid Total Volume 3.5 ml
[2019-05-25 22:35] LABS: Body Fluid WBC 1 /mm^3
[2019-05-25 22:40] LABS: Body Fluid Source CSF; Color of fluid Colorless (COLORLESS)
[2019-05-25 22:41] LABS: Appearance CLEAR (CLEAR)
[2019-05-25 22:42] LABS: Body Fluid WBC 0 /mm^3
[2019-05-25] MEDS: NA CHLORIDE 0.9% 1,000 ML IV SCH (23:00)
[2019-05-25] MEDS ORDERED: NA CHLORIDE 0.9% 250 ML ONE (23:28)
[2019-05-25] MEDS ORDERED: AZITHROMYCIN 500 MG INJ IVPB ONE (23:28)
[2019-05-26] MEDS: ACETAMINOPHEN 500 MG TAB PO PRN ×3 (00:15→20:06)
[2019-05-26] MEDS ORDERED: CEFAZOLIN SODIUM 1 GM/VIAL ONE (00:18)
[2019-05-26] MEDS ORDERED: NA CHLORIDE 0.9% 0 ML ONE (00:18)
[2019-05-26] MEDS ORDERED: THIAMINE 200 MG/2 ML INJ ONE (00:19)
[2019-05-26] MEDS ORDERED: TETANUS & DIPHTHERIA TOX,ADULT 0.5 ML VIAL ONE (00:19)
[2019-05-26] MEDS ORDERED: NA CHLORIDE 0.9% 0 ML IV ONE (00:19)
[2019-05-26] MEDS ORDERED: ACETAMINOPHEN 500 MG TAB ONE (00:22)
[2019-05-26] MEDS: NA CHLORIDE 0.9% 1,000 ML IV SCH ×5 (01:24→21:36)
[2019-05-26 01:32] VITALS: BMI 31.0
[2019-05-26] MEDS: MORPHINE 2 MG/ML SYR IV PRN ×6 (01:36→21:36)
--- NOTE | 2019-05-26 06:37 | P.HP ---
Certification for Inpatient Patient admitted to: Observation With expected LOS: <2 Midnights Patient will require the following post-hospital care: None Practitioner: I am a practitioner with admitting privileges, knowledge of patient current condition, hospital course, and medical plan of care. 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 She started running fevers of 103. The fever stayed there for a few hr. She finally decided to come into the emergency room. She was having pain from her neck to the hip region. This was occurring mainly on nurse line and was not musculoskeletal. She denies any cough or congestion any nausea, vomiting, or diarrhea. She denies any headaches or photophobia. She denies any dysuria. She denies any vaginal discharge. She does have a history of Crohn 's disease. I am not sure if he has additional autoimmune process going on at this time which is flaring up. Would check inflammatory markers as well as rheumatoid and lupus markers. Monitor her closely and await blood culture results. Allergies naproxen Adverse Reaction (Severe, Verified 07/03/16 13:00) Nausea/Vomiting NSAIDS Allergy (Severe, Uncoded 05/26/19 01:44) Anaphylaxis Home Medications: Adalimumab [Humira 40 MG/0.8 ML*] 0.8 ml SQ DIRECTED 05/26/19 Omeprazole [Prilosec] 40 mg PO DAILY 05/26/19 Spironolactone 25 mg PO DAILY 05/26/19 azaTHIOprine [Imuran] 50 mg PO DAILY 05/26/19 - Past Medical/Surgical History Has patient received pneumonia vaccine in the past: No Diabetic: No -: Crohn's disease -: Hx Gastritis -: I&D Left pinky (MRSA) 2015 -: Tonsillectomy -: IUD control - Family History Mother Notes: MS - Social History Smoking Status: Never smoker Alcohol use: Yes CD- Drugs: No Caffeine use: Yes Place of Residence: Home Review of Systems 10-point ROS is otherwise unremarkable Physical Examination - Vital Signs Temperature: 103.1 F Blood Pressure: 113/68 Pulse: 110 Respirations: 24 Pulse Ox (%): 100 - Physical Exam General: Alert, In no apparent distress, Oriented x3 HEENT: Atraumatic, PERRLA, Mucous membr. moist/pink, EOMI, Sclerae nonicteric Neck: Supple, 2+ carotid pulse no bruit, No LAD, Without JVD or thyroid abnormality Respiratory: Clear to auscultation bilaterally, Normal air movement Cardiovascular: Regular rate/rhythm, Normal S1 S2, No murmurs Gastrointestinal: Normal bowel sounds, Soft and benign, Non-distended, No tenderness Musculoskeletal: No clubbing, No swelling, No tenderness Integumentary: No rashes Neurological: Normal gait, Normal speech, Normal strength at 5/5 x4 extr, Normal tone, Sensation intact, Cranial nerves 3-12 intact, Normal affect Lymphatics: No axilla or inguinal lymphadenopathy - Studies Laboratory Data (last 24 hrs) 05/25/19 18:15: PT 13.4 H, INR 1.14, APTT 33.9 05/25/19 18:15: WBC 12.4 H, Hgb 13.7, Hct 41.8, Plt Count 309 05/25/19 18:15: Sodium 140, Potassium 3.6, BUN 9, Creatinine 1.06, Glucose 92, Total Bilirubin 0.2, AST 15, ALT 19, Alkaline Phosphatase 78, Lipase 106 Microbiology Data (last 24 hrs): 05/25/19 21:35 Cerebral Spinal Fluid Gram Stain - Final 05/25/19 18:30 Nasopharnyx Influenza Type A Antigen Screen - Final 05/25/19 18:30 Nasopharnyx Influenza Type B Antigen Screen - Final 05/25/19 18:30 Throat Group A Streptococcus Rapid Screen - Final Assessment & Plan - Problems (Diagnosis) (1) Fever Current Visit: Yes Status: Acute (2) History of Crohn's disease Current Visit: Yes Status: Acute (3) Back pain Current Visit: Yes Status: Acute (4) Neck pain Current Visit: Yes Status: Acute - Plan Plan: 1. Monitor hemodynamics closely including heart rate and fever. 2. Blood cultures pending. Spinal fluid is negative. 3. Anti-inflammatory markers pending. Patient with a history of Crohn's disease with possibly increase risk us additional autoimmune processes. 4. If fever continues along with neck pain may do a trial of steroids to see if symptoms resolve. If fever and pain resolve quickly then most likely we may be dealing with an autoimmune process 5. GI and DVT prophylaxis Discharge Plan: Home Plan to discharge in: 48 Hours - Advance Directives Does patient have a Living Will: No Does patient have a Durable POA for Healthcare: No - Code Status/Comfort Care Code Status Assessed: Yes Code Status: Full Code Critical Care: No Time Spent Managing PTS Care (In Minutes): 45
[2019-05-26 06:41] LABS: Basophils % 0.6 % (0-1.3); Eosinophils % 0.6 % (0-4.4); Hematocrit 38.5 % (36.0-45.0); Lymphocytes % 15.9 % (15.3-44.8); MPV 9.9 fL (7.6-11.3); RBC Red Blood Cell Count 4.29 M/uL (3.86-4.86)
[2019-05-26 06:57] LABS: Albumin 3.2 g/dL (3.4-5.0); Bilirubin Total 0.2 mg/dL (0.2-1.0); Potassium 3.4 mmol/L (3.5-5.1)
[2019-05-26 08:56] LABS: Rheumatoid Factor NEG (NEG)
--- NOTE | 2019-05-26 10:06 | RAD REPORT ---
EXAM DESCRIPTION: CT - Head C Spine Mpr Wo Con - 05/26/2019 1:38 am CLINICAL HISTORY: The patient is 24 years old and is Female; PAIN TECHNIQUE: Axial computed tomography images of the head/brain and cervical spine without intravenous contrast. Sagittal and coronal reformatted images were created and reviewed. This CT exam was pe rformed using one or more of the following dose reduction techniques: automated exposure control, a djustment of the mA and/or kV according to patient size, and/or use of iterative reconstruction techn ique. COMPARISON: None. FINDINGS: BRAIN: Unremarkable. No hemorrhage. No significant white matter disease. No edema . VENTRICLES: Unremarkable. No ventriculomegaly. SKULL: See below. SINUSES: Paranasal sinuses are clear. MASTOID AIR CELLS: Mastoid air cells are well-pneumatized. ORBITS: Globes and orbits are within normal limits. VERTEBRAE: Straightening of cervical lordosis. Preservation of vertebral body alignment. No acute fracture. DISCS/SPINAL CANAL/NEURAL FORAMINA: No acute findings. No spinal canal stenosis. SOFT TISSUES: Unremarkable. Multiple nonenlarged cervical lymph nodes. LUNG APICES: Apical lung zones skull demonstrates mild prominence of the interstitium. IMPRESSION: 1. No acute intracranial abnormality. 2. No cervical spine fracture or subluxation. 3. Prominence of the apical pulmonary interstitium, likely atelectasis. Electronically signed by: Diogo Wolfe DO 05/25/2019 10:22 PM CDT Due to temporary technical issues with the PACS/Fluency reporting system, reports are being signed by the in house radiologist as a courtesy to ensure prompt reporting. The interpreting radiologist is f ully responsible for the content of the report.
[2019-05-26] MEDS ORDERED: POTASSIUM CL SA 10 MEQ TAB PO ONE ×2 (11:00→21:00)
--- NOTE | 2019-05-26 11:23 | P.PN ---
Subjective Date of Service: 05/26/19 Chief Complaint: Back pain/fever Review of Systems 10-point ROS is otherwise unremarkable Physical Examination - Vital Signs Temperature: 100.7 F Blood Pressure: 117/65 Pulse: 110 Respirations: 23 Pulse Ox (%): 100 - Physical Exam General: Alert, In no apparent distress HEENT: Atraumatic, PERRLA, EOMI Neck: Supple, JVD not distended Respiratory: Clear to auscultation bilaterally, Normal air movement Cardiovascular: Regular rate/rhythm, Normal S1 S2 Gastrointestinal: Normal bowel sounds, No tenderness Musculoskeletal: No tenderness Integumentary: No rashes Neurological: Normal speech, Normal tone, Normal affect Lymphatics: No axilla or inguinal lymphadenopathy - Studies Laboratory Data (last 24 hrs) 05/25/19 18:15: PT 13.4 H, INR 1.14, APTT 33.9 05/25/19 18:15: WBC 12.4 H, Hgb 13.7, Hct 41.8, Plt Count 309 05/25/19 18:15: Sodium 140, Potassium 3.6, BUN 9, Creatinine 1.06, Glucose 92, Total Bilirubin 0.2, AST 15, ALT 19, Alkaline Phosphatase 78, Lipase 106 Microbiology Data (last 24 hrs): 05/25/19 21:35 Cerebral Spinal Fluid Gram Stain - Final 05/25/19 18:30 Nasopharnyx Influenza Type A Antigen Screen - Final 05/25/19 18:30 Nasopharnyx Influenza Type B Antigen Screen - Final 05/25/19 18:30 Throat Group A Streptococcus Rapid Screen - Final Medications List Reviewed: Yes Assessment And Plan - Current Problems (Diagnosis) (1) Viral syndrome Current Visit: Yes Status: Acute Plan: Patient with joint pain and neck pain on presentation with fever of 103 at home -extensive workup and imaging done here in the hospital -head CT and cervical spine CT negative for any acute abnormality -LP done to rule out any meningitis. Negative for bacterial meningitis cultures pending at this time possibility of viral meningitis -neurology is consulted at this time -continue with IV fluids and monitor patient here closely -conservative medical management at this time (2) History of Crohn's disease Current Visit: Yes Status: Chronic Discharge Plan: Home Plan to discharge in: Greater than 2 days - Code Status/Comfort Care Code Status Assessed: Yes Critical Care: No
--- NOTE | 2019-05-26 15:39 | EKG ---
Test Date: 2019-05-25 Test Time: 18:07:19 Sports Commentator: ARM MEASUREMENT RESULTS: Intervals: Rate: 160 [place]: 128 QRSD: 70 QT: 304 QTc: 496 [place]: P: [place]: 128 QRS: 62 T: 33 INTERPRETIVE STATEMENTS: Sinus tachycardia Nonspecific ST abnormality Abnormal ECG Compared to ECG 07/18/2017 21:28:04 ST (T wave) deviation now present Electronically Signed On 05-26-19 15:35:39 CDT by Alexandro Mills
[2019-05-26] MEDS ORDERED: ADALIMUMAB SQ SCH (17:45)
[2019-05-27] MEDS: MORPHINE 2 MG/ML SYR IV PRN ×3 (03:34→15:24)
[2019-05-27 06:11] LABS: BUN Blood Urea Nitrogen 5 mg/dL (7-18); Bicarbonate 23 mmol/L (21-32); Glucose Level 85 mg/dL (74-106); Potassium 4.2 mmol/L (3.5-5.1); Sodium Level 143 mmol/L (136-145)
[2019-05-27] MEDS: NA CHLORIDE 0.9% 1,000 ML IV SCH ×2 (07:57→15:00)
[2019-05-27] MEDS ORDERED: AZATHIOPRINE 50 MG TABLET PO SCH (09:00)
[2019-05-27 09:55] VITALS: O2SAT 98
[2019-05-27] MEDS ORDERED: TOPIRAMATE 25 MG TAB PO ONE (11:00)
[2019-05-27 12:33] VITALS: BP 113/69; TEMP 97.3
--- NOTE | 2019-05-27 12:50 | P.SSS ---
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 She started running fevers of 103. The fever stayed there for a few hr. She finally decided to come into the emergency room. She was having pain from her neck to the hip region. This was occurring mainly on nurse line and was not musculoskeletal. She denies any cough or congestion any nausea, vomiting, or diarrhea. She denies any headaches or photophobia. She denies any dysuria. She denies any vaginal discharge. She does have a history of Crohn 's disease. I am not sure if he has additional autoimmune process going on at this time which is flaring up. Would check inflammatory markers as well as rheumatoid and lupus markers. Monitor her closely and await blood culture results. Allergies naproxen Adverse Reaction (Severe, Verified 07/03/16 13:00) Nausea/Vomiting NSAIDS Allergy (Severe, Uncoded 05/26/19 01:44) Anaphylaxis Home Medications: Adalimumab [Humira 40 MG/0.8 ML*] 0.8 ml SQ DIRECTED 05/26/19 Omeprazole [Prilosec] 40 mg PO DAILY 05/26/19 Spironolactone 25 mg PO DAILY 05/26/19 azaTHIOprine [Imuran*] 50 mg PO DAILY 05/26/19 Topiramate [Topamax] 50 mg PO BID PRN #30 tablet 05/27/19 - Past Medical/Surgical History Has patient received pneumonia vaccine in the past: No Diabetic: No -: Crohn's disease -: Hx Gastritis -: I&D Left pinky (MRSA) 2015 -: Tonsillectomy -: IUD control - Family History Mother Notes: MS - Social History Smoking Status: Never smoker Alcohol use: Yes CD- Drugs: No Caffeine use: Yes Place of Residence: Home Review of Systems 10-point ROS is otherwise unremarkable Physical Examination - Vital Signs Temperature: 97.3 F Blood Pressure: 113/69 Pulse: 81 Respirations: 16 Pulse Ox (%): 97 - Physical Exam General: Alert, In no apparent distress HEENT: Atraumatic, PERRLA, Mucous membr. moist/pink, EOMI, Sclerae nonicteric Neck: Supple, 2+ carotid pulse no bruit, No LAD, Without JVD or thyroid abnormality Respiratory: Clear to auscultation bilaterally, Normal air movement Cardiovascular: Regular rate/rhythm, Normal S1 S2 Gastrointestinal: Normal bowel sounds, No tenderness Musculoskeletal: No tenderness Integumentary: No rashes Neurological: Normal gait, Normal speech, Normal strength at 5/5 x4 extr, Normal tone, Normal affect Lymphatics: No axilla or inguinal lymphadenopathy - Studies Microbiology Data (last 24 hrs): 05/25/19 21:35 Cerebral Spinal Fluid Gram Stain - Final - Diagnosis (Problem(s)) (1) Viral syndrome Current Visit: Yes Status: Acute Plan: Patient with joint pain and neck pain on presentation with fever of 103 at home -extensive workup and imaging done here in the hospital -head CT and cervical spine CT negative for any acute abnormality -LP done to rule out any meningitis. Negative for bacterial meningitis cultures negative as welll -neurology is consulted recommends outpatient workup -has been fever free for next 24 hr. Topamax helped with headaches discharged home at this time (2) History of Crohn's disease Current Visit: Yes Status: Chronic - Disposition Disposition: ROUTINE DISCHARGE Condition: GOOD Diet: Regular Activity: Ad sierra
== END 2019-05-27 16:10 | disposition home or self-care (01) ==
LOC: ER 17:49 → ERHOLD 22:23 → 2ND 05-26 00:47
PROVIDERS: ADMIT Hospitalist; ATTEND Family Medicine
PROC: 009U3ZX Drainage of Spinal Canal, Percutaneous Approach, Diagnostic (ICD-10-PCS; principal; 2019-05-25)
DX: B34.9 Viral infection, unspecified (principal); K50.90 Crohn's disease, unspecified, without complications; M54.9 Dorsalgia, unspecified; M54.2 Cervicalgia; R94.31 Abnormal electrocardiogram [ECG] [EKG]; R00.0 Tachycardia, unspecified; Z79.899 Other long term (current) drug therapy; Z86.14 Personal history of Methicillin resistant Staphylococcus aureus infection
CPT/HCPCS: 36415; 62270; 70450; 71045; 72125; 80048; 80053; 80076; 81003; 81025; 82550; 82553; 82945; 82962; 83605; 83690; 84132; 84145; 84157; 84484; 85025; 85610; 85652; 85730; 86038; 86140; 86200; 86225; 86430; 87040; 87070; 87081; 87804; 89050; 90714; 93005; 94760; 99285; G0378; J0456; J0690; J0696; J2270; J2405; J3411; J7030; J7500

== ENCOUNTER 2020-09-01 11:41 | Emergency (ER) | payer BC, OTHER ==
--- OUTSIDE RECORDS SUMMARY | 2020-09-01 11:44 | XMS REPORT | Summary of Care ---
:1995 Author Organization [facility] Address [address] [place] [address] Care Team Providers Name Role Phone Jerald Riggins Primary Care Provider Reason for Visit Reason Comments Well Woman Exam Encounter Details Date Type Department Care Team Description 07/01/2020 Office Visit [facility] Women's Socorro Florence, Well woman exam with routine gynecological exam (Primary Dx); [facility] PA-C Screening breast examination; [address] [place] [address] counseling for prescription of oral contraceptives [facility], [address] [place] [id number] [place], [place] [phone] Allergies Active Allergy Reactions Severity Noted Date Comments Nsaids (Non-Steroidal Other - See comments 06/29/2019 Chrons Anti-Inflammatory Drug) documented as of this encounter (statuses as of 07/01/2020) Medications Medication Sig Dispensed Refills Start Date End Date Status SEEMA MARTIN, 40 0 06/13/2020 Activ e mg/0.4 mL SyKt dextroamphetamin Take by 0 Act oscar e/amphetamine mouth. (ADDERALL ORAL) LOESTRIN FE 1 Take 1 1 Package 12 07/01/2020 Activ e mg-20 mcg tablet by (21)/75 mg (7) mouth daily. tablet LOESTRIN FE 1 Take 1 1 Package 12 06/29/2019 07/01/2020 Disc ontinued mg-20 mcg tablet by (Reorder) (21)/75 mg (7) mouth daily. tabletIndication s: Initiation of OCP (BCP) documented as of this encounter (statuses as of 07/01/2020) Active Problems Problem Noted Date Obesity (BMI 30-39.9) 06/29/2019 documented as of this encounter (statuses as of 07/01/2020) Social History Tobacco Use Types Packs/Day Years Used Date Never Smoker Smokeless Tobacco: Never Used Alcohol Use Drinks/Week oz/Week Comments Yes rare Sex Assigned at Date Recorded Not on file COVID-19 Exposure Response Date Recorded In the last month, have you been in contact with No / Unsure 07/01/2020 8:09 AM CDT someone who was confirmed or suspected to have Coronavirus / COVID-19? documented as of this encounter Last Filed Vital Signs Vital Sign Reading Time Taken Comments Blood Pressure 129/89 07/01/2020 8:22 AM CDT Pulse 98 07/01/2020 8:22 AM CDT Temperature 36.8 C (98.3 F) 07/01/2020 8:22 AM CDT Respiratory Rate 18 07/01/2020 8:22 AM CDT Oxygen Saturation - - Inhaled Oxygen Concentration - - Weight 73.5 kg (162 lb) 07/01/2020 8:22 AM CDT Height 162.6 cm (5' 4") 07/01/2020 8:22 AM CDT Body Mass Index 27.81 07/01/2020 8:22 AM CDT documented in this encounter Progress Notes Socorro Florence PA-C - 07/01/2020 8:00 AM CDT Chief complaint: Chief Complaint Patient presents with Well Woman Exam HPI Gini Santos is a 25 year old female presenting for well woman exam. She is particularly concerned about not having menses while on loestrin. The patient has a Body mass index is 27.81 kg/m.. She is working on eating healthier and exercising more. The patient is concerned about her menstrual cycles. Her cycles are not present due to OCPs. Her bleeding is moderate. The patient is sexually active. She currently has 1 sexual partner(s). She is offered sexually transmitted disease testing and declines. She has had 1 sexual partners in the past year. She engages in vaginal and oral sex. She prefers men. She is currently using ocps for contraception. The patient denies any urinary incontinence. She denies any fecal incontinence. Her last pap smear was in 2019 and was normal. Her next pap smear is due 2021. She engages in breast self awareness. She denies any breast changes. She denies any family history of breast, ovarian, uterine or colon cancer. The patient feels safe at home. She denies any history of drug use. She does not smoke. She drinks socially. Her mood is good. Histories OB History Para Term AB Living 0 0 0 0 0 0 SAB TAB Ectopic Multiple Live Births 0 0 0 0 0 Past Medical History: Diagnosis Date Crohn disease Interstitial cystitis Family History Problem Relation Age of Onset Muscular dystrophy Mother No Significant Medical Problems Father Family Status Relation Name Status Mo Alive Fa Alive Past Surgical History: Procedure Laterality Date TONSILLECTOMY 2004 Social History Socioeconomic History Marital status: Single Spouse name: Not on file Number of children: Not on file Years of education: Not on file Highest education level: Not on file Occupational History Not on file Social Needs Financial resource strain: Not on file Food insecurity Worry: Not on file Inability: Not on file Transportation needs Medical: Not on file Non-medical: Not on file Tobacco Use Smoking status: Never Smoker Smokeless tobacco: Never Used Substance and Sexual Activity Alcohol use: Yes Comment: rare Drug use: Never Sexual activity: Yes Partners: Male control/protection: I.U.D. Lifestyle Physical activity Days per week: Not on file Minutes per session: Not on file Stress: Not on file Relationships Social connections Talks on phone: Not on file Gets together: Not on file Attends yarsanism service: Not on file Active member of club or organization: Not on file Attends meetings of clubs or organizations: Not on file Relationship status: Not on file Intimate partner violence Fear of current or ex partner: Not on file Emotionally abused: Not on file Physically abused: Not on file Forced sexual activity: Not on file Other Topics Concern Not on file Social History Narrative Pt denies physical and sexual abuse. Social History Substance and Sexual Activity Sexual Activity Yes Partners: Male control/protection: I.U.D. Labs none Radiology none Allergies Gini is allergic to nsaids (non-steroidal anti-inflammatory drug). Medications Gini has a current medication list which includes the following prescription(s): loestrin fe. Review of Systems Constitutional: Negative for appetite change, fatigue and fever. HENT: Negative for rhinorrhea and sore throat. Eyes: Negative for pain and itching. Respiratory: Negative for cough, chest tightness and shortness of breath. Breasts: Negative for discharge, mass and pain. Cardiovascular: Negative for chest pain, palpitations and leg swelling. Gastrointestinal: Negative for abdominal pain, constipation, diarrhea and nausea. Genitourinary: Negative for bladder incontinence, dysuria, vaginal discharge, difficulty urinating, vaginal pain and pelvic pain. Musculoskeletal: Negative for gait problem and myalgias. Skin: Negative for rash. Neurological: Negative for dizziness and headaches. Psychiatric/Behavioral: Negative for suicidal ideas. The patient is not nervous/anxious. Endocrine: Negative for hair loss. BP 129/89 (BP Location: Left arm, Patient Position: Sitting, BP CUFF SIZE: Adult Medium) | Pulse 98 | Temp 36.8 C (98.3 F) (Oral) | Resp 18 | Ht 5' 4" (1.626 m) | Wt 162 lb (73.5 kg) | BMI 27.81 kg/m Pregravid BMI: Could not be calculated Physical Exam Vitals reviewed. Constitutional: She is oriented to person, place, and time. She appears well- developed and well-nourished. Neck: No mass. No thyromegaly palpated. No neck adenopathy. Cardiovascular: Regular rate and rhythm. Pulmonary/Chest: Normal inspiratory effort. Abdominal: Abdomen is soft. No tenderness present. No hernia palpated or inspected. Neuro/Psychiatric: She has a normal mood and affect. She is oriented to person, place, and time. Skin: Skin normal. Lymphadenopathy: No neck adenopathy present. No axillary adenopathy present. No inguinal adenopathy present. Assessment/Plan Well woman exam with routine gynecological exam (primary encounter diagnosis) FOLLOW-UP in 1 yr WWE Screening breast examination No complaints, self awareness On OCPS Patient education given about ocps, this can occur due to long time usage of ocps. Patient denies self or family history of thromboembolic disease or thrombophilia, migraine headache. I counseled patient regarding use of oral contraceptives. There are combined oral contraceptive, which has both estrogen and progestin, and there is progestin only oral contraceptive. With typical us e, 9 out 100 women get in the first year and with perfect use 0.3 out of 100 women get in the first year according to ACOG Practice Bulletin. Risks include but not limited to increase risk of thromboembolic disease, headache, weight gain, mood lability, and breast cancer. Decrease risks of ovarian cancer, colon cancer, and endometrial cancer. Oral contraceptive may decrease milk supply. Alternatives reviewed include patch, ring, Depo-Provera, Nexplanon, and IUD. Advise using condoms for STDs prevention. Return to clinic in 1 yr WWE Discussed treatment options. Reviewed patient instructions and provided printed copy. This visit did not involve counseling and coordination that comprised more than 50% of the visit time. Socorro Florence PA-C 07/01/2020 8:26 AM documented in this encounter Plan of Treatment Health Maintenance Due Date Last Done Comments VARICELLA VACCINES (1 of - 1995 2-dose childhood series) HPV VACCINES (1 - 2-dose series) 2005 Depression Screening 2006 DTaP,Tdap,and Td Vaccines ( - 2013 Tdap) INFLUENZA VACCINE (#1) 2020 PAP SMEAR 06/29/2022 06/29/2019 PNEUMOCOCCAL 0-64 YEARS COMBINED Aged Out No longer eligible based on SERIES patient's age to complete this topic documented as of this encounter Results Not on filedocumented in this encounter Visit Diagnoses Diagnosis Well woman exam with routine gynecologic al exam - Primary Routine gynecological examination Screening breast examination Other screening breast examination General counseling for prescription of o ral contraceptives documented in this encounter Insurance Payer Benefit Plan Subscriber ID Effective Dates Phone Address Type / Group BCBS OF [facility] [id number] 2020-Ramírez [phone] [address] PPO/POS [place] [id number] [place] [address] documented as of this encounter
--- OUTSIDE RECORDS SUMMARY | 2020-09-01 11:44 | XMS REPORT | Summary of Care ---
:1995 Author Organization [facility] - Health Address [address] [place] [address] Care Team Providers Name Role Phone Jerald Riggins Primary Care Provider Encounter Details Date Type Department Care Team Description 07/01/2020 Orders Only [facility] Doctor Unassigned, No 301 [facility] [place] [address] [address] [place] [address] Allergies Active Allergy Reactions Severity Noted Date Comments Nsaids (Non-Steroidal Other - See comments 06/29/2019 Chrons Anti-Inflammatory Drug) documented as of this encounter (statuses as of 07/01/2020) Medications Medication Sig Dispensed Refills Start Date End Date Status LOESTRIN FE 1 mg-20 Take 1 tablet by 1 Package 12 06/29/2019 Active mcg (21)/75 mg (7) mouth daily. tabletIndications: Initiation of OCP (BCP) documented as of this encounter (statuses as of 07/01/2020) Active Problems Problem Noted Date Obesity (BMI 30-39.9) 06/29/2019 documented as of this encounter (statuses as of 07/01/2020) Social History Tobacco Use Types Packs/Day Years Used Date Never Smoker Smokeless Tobacco: Never Used Alcohol Use Drinks/Week oz/Week Comments Yes rare Sex Assigned at Date Recorded Not on file documented as of this encounter Last Filed Vital Signs Not on filedocumented in this encounter Plan of Treatment Health Maintenance Due Date Last Done Comments VARICELLA VACCINES (1 of 2 - 1995 2-dose childhood series) HPV VACCINES (1 - 2-dose series) 2005 Depression Screening 2006 DTaP,Tdap,and Td Vaccines (1 - 2013 Tdap) INFLUENZA VACCINE (#1) 2020 PAP SMEAR 06/29/2022 06/29/2019 PNEUMOCOCCAL 0-64 YEARS COMBINED Aged Out No longer eligible based on SERIES patient's age to complete this topic documented as of this encounter Procedures Procedure Name Priority Date/Time Associated Diagnosis Comme nts ASSIGNMENT OF BENEFITS Routine 07/01/2020 8:07 AM CDT documented in this encounter Results Not on filedocumented in this encounter Insurance Payer Benefit Plan Subscriber ID Effective Dates Phone Address Type / Group BC[place] [id number] 2020-Ramírez [phone] [address] PPO/POS [place] t 7 [id number] [place] [address] documented as of this encounter
--- OUTSIDE RECORDS SUMMARY | 2020-09-01 11:44 | XMS REPORT | Summary of Care ---
:1995 Author Organization [facility] Address [address] [place] [address] Care Team Providers Name Role Phone Jerald Riggins Primary Care Provider Reason for Visit Reason Comments Well Woman Exam Encounter Details Date Type Department Care Team Description 07/01/[address] [facility] Women's [place], Well woman exam with routine gynecological exam (Primary Dx); [facility] [place] PA-C Screening breast examination; [address] [place] [address] counseling for prescription of oral contraceptives [facility], [address] [place] [address] [place], [place] [phone] [address] Allergies Active Allergy Reactions Severity Noted [...] file Gets together: Not on file Attends pentecostalism service: Not on file Active member of [...] Phone Address Type / Group BCBS OF [facility] [id number] 2020-Ramírez [phone] [address] PPO/POS [place] t 7 [id number] [place] [address] documented as of this encounter
--- OUTSIDE RECORDS SUMMARY | 2020-09-01 11:44 | XMS REPORT | Continuity of Care Document ---
:1995 Author Organization [facility] t Address [address] [place] [address] Care Team Providers Name Role Phone Naman BURDEN Attending Clinician Problems This patient has no known problems. Allergies, Adverse Reactions, Alerts This patient has no known allergies or adverse reactions. Medications This patient has no known medications. Procedures This patient has no known procedures. Encounters Start End Encounter Admission Attending Care Care Encounter Source Date/Time Date/Time Type Type Clinicians Facility Department ID 2020-07-01 2020-07-01 Office ANY [place] [id number] 2014 08:09:51 08:39:51 Visit [place] Ocasio [id number] [place] [id number] [place] [phone] [facility] [address] Building Results This patient has no known results.
[2020-09-01 12:42] LABS: Urine Blood NEGATIVE (NEG); Urine Glucose NEGATIVE (NEG); Urine Protein NEGATIVE (NEG)
[2020-09-01] MEDS ORDERED: dexAMETHasone 4 MG/ML VIAL ONE (12:57)
[2020-09-01] MEDS ORDERED: METOCLOPRAMIDE 10 MG/2mL INJ ONE (12:57)
[2020-09-01] MEDS ORDERED: NA CHLORIDE 0.9% 50 ML IV ONE (12:57)
[2020-09-01] MEDS ORDERED: NA CHLORIDE 0.9% 1,000 ML ONE (12:57)
[2020-09-01] MEDS ORDERED: DIPHENHYDRAMINE 50 MG/ML VIAL ONE (12:57)
--- NOTE | 2020-09-01 13:09 | RAD REPORT ---
EXAM DESCRIPTION: CT - Head Brain Wo Cont - 09/01/2020 12:42 pm CLINICAL HISTORY: HEADACHE, hypertension COMPARISON: No comparisons TECHNIQUE: Axial 5 mm thick images of the head were obtained without IV contrast. All CT scans are performed using dose optimization technique as appropriate and may include automated exposure control or mA/KV adjustment according to patient size. FINDINGS: No intracranial hemorrhage, mass, edema or shift of mid-line structures. No acute infarcti on changes seen. No abnormal extra-axial fluid collections. Ventricles are normal. Mastoid air cells and visualized portions of the paranasal sinuses are clear. No acute bony findings. IMPRESSION: Negative non-contrast CT head examination.
--- NOTE | 2020-09-01 14:44 | EDPHYS ---
Physician Documentation [facility] Name: Gini Santos Age: 25 yrs Sex: Female : 1995 Arrival Date: 09/01/2020 Time: 11:47 Bed 19 Private MD: ED Physician Yoseph Hirsch HPI: 09/01 12:19 This 25 yrs old Female presents to ER via Ambulatory with complaints of pm1 Headache, Elevated Blood Pressure. 12:19 The patient complains of pain to the left eye. The patient describes the headache as pm1 aching, constant. Onset: The symptoms/episode began/occurred 3 day(s) ago. Associated signs and symptoms: Pertinent positives: nausea, vomiting, Vision blurred - Typical for aura with her migraines, Pertinent negatives: fever, neck stiffness, weakness. Severity of symptoms: in the emergency department the pain is actually worse. Headache History: The patient has had previous headaches and this one is similar to previous episodes, and this one is more severe than previous episodes. The symptoms are alleviated by nothing. the symptoms are aggravated by movement. The patient has experienced similar episodes in the past, multiple times, Topamax and Triptan not working for her headache. Historical: - Allergies: 12:05 NSAIDS; "I cannot take because of Crohn's"; ll1 - PMHx: 12:05 Crohn's; GERD; Migraines; ll1 - PSHx: 12:05 Tonsillectomy; ll1 - Immunization history:: Flu vaccine is not up to date. - Social history:: Smoking status: Patient denies any tobacco usage or history of. ROS: 12:19 Constitutional: Negative for fever, chills, and weight loss, Neck: Negative for injury, pm1 pain, and swelling, Cardiovascular: Negative for chest pain, palpitations, and edema, Respiratory: Negative for shortness of breath, cough, wheezing, and pleuritic chest pain. 12:19 Back: Negative for injury and pain, : Negative for injury, bleeding, discharge, and swelling, MS/Extremity: Negative for injury and deformity, Skin: Negative for injury, rash, and discoloration. 12:19 Abdomen/GI: Positive for nausea, vomiting, Negative for abdominal pain, diarrhea, constipation. 12:19 Neuro: Positive for headache, Negative for numbness, tingling. Exam: 12:19 Constitutional: This is a well developed, well nourished patient who is awake, alert, pm1 and in no acute distress. Head/Face: Normocephalic, atraumatic. Neck: Trachea midline, no thyromegaly or masses palpated, and no cervical lymphadenopathy. Supple, full range of motion without nuchal rigidity, or vertebral point tenderness. No Meningismus. 12:19 Skin: Warm, dry with normal turgor. Normal color with no rashes, no lesions, and no evidence of cellulitis. MS/ Extremity: Pulses equal, no cyanosis. Neurovascular intact. Full, normal range of motion. 12:19 Cardiovascular: Exam negative for acute changes, Rate: normal, Rhythm: regular, Pulses: no pulse deficits are appreciated. 12:19 Respiratory: Exam negative for acute changes, respiratory distress, shortness of breath. 12:19 Neuro: Exam negative for acute changes, Orientation: is normal, Mentation: is normal, Motor: is normal, moves all fours. Vital Signs: 12:02 BP 142 / 93; Pulse 110; Resp 17; Temp 98.2; Pulse Ox 99% ; Weight 74.39 kg; Height 5 ll1 ft. 4 in. (162.56 cm); Pain 5/10; 13:10 BP 116 / 68; Pulse 89; Resp 16; Pulse Ox 100% on R/A; Pain 5/10; ph 14:30 BP 114 / 60; Pulse 78; Resp 18; Temp 97.6; Pulse Ox 100% on R/A; ph 12:02 Body Mass Index 28.15 (74.39 kg, 162.56 cm) ll1 MDM: 12:06 Patient medically screened. pm1 14:37 Data reviewed: vital signs. Data interpreted: Pulse oximetry: on room air is 100 %. pm1 Interpretation: normal. Counseling: I had a detailed discussion with the patient and/or guardian regarding: the historical points, exam findings, and any diagnostic results supporting the discharge/admit diagnosis, radiology results, the need for outpatient follow up, a neurologist, to return to the emergency department if symptoms worsen or persist or if there are any questions or concerns that arise at home. ED course: Patient pain decreased to about 1/2. Pain level 3/10 at the moment. 09/01 12:39 Order name: Urine Dipstick--Ancillary (enter results); Complete Time: 12:48 eb 09/01 12:39 Order name: Urine --Ancillary (enter results); Complete Time: 12:48 eb 09/01 12:19 Order name: CT Head Brain wo Cont; Complete Time: 13:12 pm1 09/01 12:19 Order name: Urine Dipstick-Ancillary (obtain specimen); Complete Time: 13:09 pm1 09/01 12:19 Order name: Urine Test (obtain specimen); Complete Time: 13:09 pm1 09/01 12:19 Order name: IV Saline Lock; Complete Time: 13:07 pm1 Administered Medications: 13:00 Drug: NS 0.9% 1000 ml Route: IV; Rate: 1000 ml; Site: right antecubital; ph 14:30 Follow up: Response: No adverse reaction; IV Status: Completed infusion; IV Intake: ph 1000ml 13:01 Drug: Benadryl 25 mg Route: IVP; Site: right antecubital; ph 14:30 Follow up: Response: No adverse reaction ph 13:03 Drug: Decadron - Dexamethasone 10 mg Route: IVP; Site: right antecubital; ph 14:30 Follow up: Response: No adverse reaction ph 13:05 Drug: Reglan 10 mg Route: IVP; Site: right antecubital; ph 14:30 Follow up: Response: No adverse reaction; Pain is decreased ph Disposition: 14:55 Co-signature as Attending Physician, Yoseph Hirsch MD. rn Disposition: 09/01/20 14:43 Discharged to Home. Impression: Headache. - Condition is Stable. - Discharge Instructions: General Headache Without Cause, Migraine Headache. - Prescriptions for Fioricet 50- 325-40 mg Oral tablet - take 1 tablet by ORAL route every 4 hours As needed as needed not to exceed 6 tablets per 24hrs; 20 tablet. Zofran 4 mg Oral Tablet - take 1 tablet by ORAL route every 12 hours As needed; 20 tablet. - Medication Reconciliation Form, Thank You Letter, Antibiotic Education, Prescription Opioid Use form. - Follow up: Emergency Department; When: As needed; Reason: Worsening of condition. Follow up: Private Physician; When: 2 - 3 days; Reason: Recheck today's complaints, Continuance of care, Re-evaluation by your physician. - Problem is new. - Symptoms have improved. Signatures: Dispatcher [employer] EDMS Yoseph Hirsch MD MD rn Hall, Patricia, RN RN ph Mario Sanchez, MARKET RISK ANALYST MARKET RISK ANALYST pm1 Patricia Persaud RN RN Raquel Marie RN RN ll1 Corrections: (The following items were deleted from the chart) 14:55 14:43 09/01/2020 14:43 Discharged to Home. Impression: Headache. Condition is Stable. hb Forms are Medication Reconciliation Form, Thank You Letter, Antibiotic Education, Prescription Opioid Use. Follow up: Emergency Department; When: As needed; Reason: Worsening of condition. Follow up: Private Physician; When: 2 - 3 days; Reason: Recheck today's complaints, Continuance of care, Re-evaluation by your physician. Problem is new. Symptoms have improved. pm1
--- NOTE | 2020-09-01 14:44 | ER ---
Nurse's Notes [facility] Name: Gini Santos Age: 25 yrs Sex: Female : 1995 Arrival Date: 09/01/2020 Time: 11:47 Bed 19 Private MD: Diagnosis: Headache Presentation: 09/01 12:02 Chief complaint: Patient states: ASH since . BP was elevated at work Wednesday. ll1 Tried her usual migraine medications, no relief. Coronavirus screen: Client denies travel out of the [place] in the last 14 days. headache, Client presents with at least one sign or symptom that may indicate coronavirus-19. Standard/surgical mask placed on the client. Ebola Screen: Patient denies travel to an Ebola-affected area in the 21 days before illness onset. Initial Sepsis Screen: Does the patient meet any 2 criteria? HR > 90 bpm. No. Patient's initial sepsis screen is negative. Does the patient have a suspected source of infection? Yes: Other: headache. Risk Assessment: Do you want to hurt yourself or someone else? Patient reports no desire to harm self or others. Onset of symptoms was August 29, 2020. 12:02 Method Of Arrival: Ambulatory ll1 12:02 Acuity: JARED 3 ll1 Historical: - Allergies: 12:05 NSAIDS; "I cannot take because of Crohn's"; ll1 - PMHx: 12:05 Crohn's; GERD; Migraines; ll1 - PSHx: 12:05 Tonsillectomy; ll1 - Immunization history:: Flu vaccine is not up to date. - Social history:: Smoking status: Patient denies any tobacco usage or history of. Screenin:12 Abuse screen: Denies threats or abuse. Denies injuries from another. Nutritional ph screening: No deficits noted. Tuberculosis screening: No symptoms or risk factors identified. Fall Risk None identified. Assessment: 13:10 General: Appears in no apparent distress. uncomfortable, slender, well groomed, ph Behavior is calm, cooperative, appropriate for age, Denies fever, feeling ill. Pain: Complains of pain in left protestant. Neuro: Level of Consciousness is awake, alert, obeys commands, Oriented to person, place, time, situation, Reports headache in left parietal area. Cardiovascular: Capillary refill < 3 seconds in bilateral fingers Patient's skin is warm and dry. Respiratory: Airway is patent Respiratory effort is even, unlabored, Respiratory pattern is regular, symmetrical. GI: Patient currently denies nausea, vomiting. Derm: Skin is intact, is healthy with good turgor. Vital Signs: 12:02 BP 142 / 93; Pulse 110; Resp 17; Temp 98.2; Pulse Ox 99% ; Weight 74.39 kg; Height 5 ll1 ft. 4 in. (162.56 cm); Pain 5/10; 13:10 BP 116 / 68; Pulse 89; Resp 16; Pulse Ox 100% on R/A; Pain 5/10; ph 14:30 BP 114 / 60; Pulse 78; Resp 18; Temp 97.6; Pulse Ox 100% on R/A; ph 12:02 Body Mass Index 28.15 (74.39 kg, 162.56 cm) ll1 ED Course: 11:47 Patient arrived in ED. mr 11:57 Mario Sanchez NP is PHCP. pm1 11:57 Yoseph Hirsch MD is Attending Physician. pm1 12:04 Triage completed. ll1 12:05 Arm band placed on Patient placed in an exam room, on a stretcher. ll1 12:16 Roselyn Sharif, RN is Primary Nurse. ph 12:42 CT Head Brain wo Cont In Process Unspecified. EDMS 13:00 Inserted saline lock: 22 gauge in right antecubital area, using aseptic technique. ph 13:12 Patient has correct armband on for positive identification. Bed in low position. Call ph light in reach. Side rails up X 1. Pulse ox on. NIBP on. Door closed. Noise minimized. Lights dimmed. Warm blanket given. 14:54 No provider procedures requiring assistance completed. IV discontinued, intact, hb bleeding controlled, No redness/swelling at site. Administered Medications: 13:00 Drug: NS 0.9% 1000 ml Route: IV; Rate: 1000 ml; Site: right antecubital; ph 14:30 Follow up: Response: No adverse reaction; IV Status: Completed infusion; IV Intake: ph 1000ml 13:01 Drug: Benadryl 25 mg Route: IVP; Site: right antecubital; ph 14:30 Follow up: Response: No adverse reaction ph 13:03 Drug: Decadron - Dexamethasone 10 mg Route: IVP; Site: right antecubital; ph 14:30 Follow up: Response: No adverse reaction ph 13:05 Drug: Reglan 10 mg Route: IVP; Site: right antecubital; ph 14:30 Follow up: Response: No adverse reaction; Pain is decreased ph Intake: 14:30 IV: 1000ml; Total: 1000ml. ph Outcome: 14:43 Discharge ordered by MD. pm1 14:54 Discharged to home ambulatory. hb 14:54 Condition: stable 14:54 Discharge instructions given to patient, Instructed on discharge instructions, follow up and referral plans. medication usage, Demonstrated understanding of instructions, follow-up care, medications, Prescriptions given X 2. 14:55 Patient left the ED. Signatures: Dispatcher [employer] EDLA DelgadoNancy ivy Patricia, RN RN Mario Sanchez, AYAD DENSITY CONTROL PUNCHER pm1 Patricia Persaud RN RN Raquel Marie RN RN ll1 Corrections: (The following items were deleted from the chart) 13:08 13:07 NS 0.9% 1000 ml IV at 1000 ml in right antecubital ph ph 13:08 13:08 Benadryl 25 mg IVP in right antecubital ph ph
[2020-09-01 15:04] VITALS: BP 116/68
[2020-09-01 15:10] VITALS: O2SAT 97
[2020-09-01 15:11] VITALS: TEMP 98.5
== END 2020-09-01 14:55 | disposition home or self-care (01) ==
LOC: ER 11:41
DX: R51.9 Headache, unspecified (principal); Z88.6 Allergy status to analgesic agent
CPT/HCPCS: 96361; 81025; 81003; 70450; 96375; 96374; 99284; J1100; J2765; J1200; J7030

== ENCOUNTER 2020-09-24 09:18 | Day surgery (SDC) | payer BC ==
[2020-09-23 17:07] LABS: Basophils % 0.2 % (0-1.3); Hematocrit 37.3 % (36.0-45.0); Lymphocytes % 26.3 % (15.3-44.8); MPV 10.1 fL (7.6-11.3); RBC Red Blood Cell Count 4.13 M/uL (3.86-4.86)
--- OUTSIDE RECORDS SUMMARY | 2020-09-24 09:30 | XMS REPORT | Summary of Care ---
:1995 Author Organization [facility] Address [address] [place] [address] Care Team Providers Name Role Phone Jerald Riggins Primary Care Provider Reason for Visit Reason Comments Well Woman Exam Encounter Details Date Type Department Care Team Description 07/01/2020 Office Visit [facility] Women's [place], Well woman exam with routine gynecological exam (Primary Dx); [facility] [place] PA-C Screening breast examination; [address] [place] [address] counseling for prescription of oral contraceptives [facility], [address] [place] [address] [place], [place] [phone] Allergies Active Allergy Reactions Severity Noted [...] file Gets together: Not on file Attends restorationism service: Not on file Active member of [...] Phone Address Type / Group BCBS OF [facility] [id number] 2020-Ramírez [phone] [address] PPO/POS [place] t 7 [id number] [place] [address] documented as of this encounter
--- OUTSIDE RECORDS SUMMARY | 2020-09-24 09:30 | XMS REPORT | Continuity of Care Document ---
:1995 Author Organization [facility] t Address [address] [place] [address] Care Team Providers Name Role Phone Naman [...] Department ID 2020-07-01 2020-07-01 Office ANY [place] [id number] 2014 08:09:51 08:39:51 Visit [place] Ocasio [id number] [place] [id number] [place] [phone] [facility] [address] Building Results This patient has no known results.
--- OUTSIDE RECORDS SUMMARY | 2020-09-24 09:30 | XMS REPORT | Summary of Care ---
:1995 Author Organization [facility] Address [address] [place] [address] Care Team Providers Name Role Phone Jerald Riggins Primary Care Provider Reason for Visit Reason Comments Well Woman Exam Encounter Details Date Type Department Care Team Description 07/01/2020 Office Visit [facility] Women's [place], Well woman exam with routine gynecological exam (Primary Dx); [facility] [place] PA-C Screening breast examination; [address] [place] [address] counseling for prescription of oral contraceptives [facility], [address] [place] [address] [place], [place] [phone] Allergies Active Allergy Reactions Severity Noted [...] file Gets together: Not on file Attends cheondoism service: Not on file Active member of [...] Phone Address Type / Group BCBS OF [facility] [id number] 2020-Ramírez [phone] [address] PPO/POS [place] t 7 [id number] [place] [address] documented as of this encounter
--- OUTSIDE RECORDS SUMMARY | 2020-09-24 09:30 | XMS REPORT | Summary of Care ---
:1995 Author Organization [facility] - Health Address [address] [place] [address] Care Team Providers Name Role Phone Jerald Riggins Primary Care Provider Encounter Details Date Type Department Care Team Description 07/01/2020 Orders Only [facility] Doctor Unassigned, No 301 [facility] [place] [address] [address] [place] [address] Allergies Active Allergy Reactions Severity Noted Date [...] Type / Group BCBS OF [employer] [place] [id number] 2020-Ramírez [phone] [address] PPO/POS [place] t 7 [id number] [place] [address] documented as of this encounter
[2020-09-24] MEDS ORDERED: SCOPOLAMINE HYDROBROMIDE PATCH TD ONE (09:52)
[2020-09-24] MEDS ORDERED: Ringers Lactate 1,000 ML IV ONE (09:55)
[2020-09-24] MEDS ORDERED: CEFOXITIN/SWI 1gm 1 GM/10 ML SYR ONE (10:10)
[2020-09-24] MEDS ORDERED: FENTANYL CITR 100 MCG/2 ML ONE (11:28)
[2020-09-24] MEDS ORDERED: LIDOCAINE 1% MPF 5 ML VIAL ONE (11:28)
[2020-09-24] MEDS ORDERED: MIDAZOLAM HCL 2 MG/2 ML INJ ONE (11:28)
[2020-09-24] MEDS ORDERED: propofoL 200 MG/20 ML VIAL IV ONE (11:28)
[2020-09-24] MEDS ORDERED: ONDANSETRON 4 MG/2 ML VIAL ONE ×2 (11:51→12:29)
[2020-09-24] MEDS ORDERED: KETOROLAC 30 MG/ML INJ ONE (11:51)
[2020-09-24] MEDS ORDERED: dexAMETHasone 10 MG/ML VIAL ONE (11:51)
[2020-09-24] MEDS: HYDROMORPHONE HCL 1 MG/ML INJ ONE ×6 (12:05→12:34)
[2020-09-24] MEDS ORDERED: MEPERIDINE HCL 50 MG/ML ONE (12:57)
[2020-09-24] MEDS ORDERED: HYDROCODONE/APAP 7.5/325 MG TAB ONE (13:38)
[2020-09-24 14:41] VITALS: TEMP 97.2; O2SAT 100
[2020-09-24 14:42] VITALS: BP 116/74
--- NOTE | 2020-09-24 15:36 | OP ---
Date of Procedure: 09/24/2020 Surgeon: David Green MD Video Production Assistant: None. Preoperative Diagnosis: Iwosiwg-[id number] and perianal abscess. Postoperative Diagnosis: Azhqxap-fy-wdy and perianal abscess. Procedures: Exam under anesthesia, rigid proctoscopy, fistulotomy, incision and drainage of perianal abscess. Estimated Blood Loss: Minimal. Specimen: None. Findings: As above. Anesthesia: General. Complications: None. Disposition: The patient tolerated the procedure in stable condition, taken to Recovery in good gene ral condition. Procedure In Detail: The patient was brought to the OR and placed in supine position. General anest hesia begun. The patient was placed in the lithotomy position, prepped and draped in the usual steri le fashion. Exam under anesthesia revealed a small opening in the posterior midline consistent with [id number] and then a small pustule in the anterior midline where minimum amount of pus was oozin g. Proctoscopy was performed. There was no other evidence of disease identified intraluminally subs equently. A probe was placed in the fistula and it was opened up with cautery, and the tract was norma aned with a curette and cautery was used to incise and drain that small pustule that was present in t he anterior midline. Bleeding was controlled with cautery. Marcaine 0.5% was infiltrated locally an d then a sterile dressing was applied. The patient was awakened and taken to Recovery in good genera l condition. Discharge Note: The patient will go to Day Surgery and home when stable. Disposition: Home. Condition: Stable. Discharge Instructions: Resume home medications and diet. Activity as tolerated. No heavy lifting. Sitz baths q.i.d. High-fiber diet, Metamucil 1 tablespoon p.o. t.i.d., Procto-HC 2.5% to anus b.i. d., Colace 100 mg p.o. b.i.d. The patient already has Cipro and Flagyl. Tylenol No.3 one tablet p.o . q.4 p.r.n. pain and follow up in my office in 2 weeks. Call for appointment. SONAL/DEREK Voice ID: [id number] Report ID: [id number]
== END 2020-09-24 14:30 | disposition home or self-care (01) ==
LOC: OR 09:18
PROVIDERS: ATTEND Surgery
PROC: 0D9Q3ZZ Drainage of Anus, Percutaneous Approach (ICD-10-PCS; principal; 2020-09-24 11:00)
DX: K61.0 Anal abscess (principal); K50.90 Crohn's disease, unspecified, without complications; F98.8 Other specified behavioral and emotional disorders with onset usually occurring in childhood and adolescence; Z20.828 Contact with and (suspected) exposure to other viral communicable diseases
CPT/HCPCS: 36415; 81025; 85025; J1100; J1170; J2175; J2250; J2405; J2704; J3010; J7120